=== PATIENT | male | born 1935 | race Caucasian/White ===

== ENCOUNTER 2016-06-14 15:06 | Inpatient (IN) | payer MEDICARE, MEDICAID ==
[~2016-06-14] VITALS: Ht 162.6 cm; Wt 67.7 kg
[~2016-06-14 15:06] MED LIST: ACET325T33 G-TUBE; ACET325T45 G-TUBE; ALBU2.5V3 NEB; ASCO500S2 GTB; ATOR10TA65 G-TUBE; BISA10SU58 PR; CHLO118L3 TOP; CRAN3875 GTB; FAMO20TA18 GTB; FERR220S2 GTB; HYDR-906 GTB; INSU300I SQ; KEP100S G-TUBE; LACT1CAP4 G-TUBE; LANT3I SC; MAGN400O4 G-TUBE; METO-429 GTB; MULT9LIQ4 G-TUBE; NA P118E PR; TYL500 G-TUBE; UDCOL GTB
--- NOTE | 2016-06-14 15:21 | ERA ---
ER Documentation Chief Complaint Date/Time DATE: 06/14/16 TIME: 15:13 Chief Complaint HPI History is limited due to the patient's clinical condition and cognitive impairment and is obtained from transferring paramedics and review of [facility] facility records. 80-year-old male with a history of diabetes mellitus type 2, hypertension, hyperlipidemia, chronic respiratory failure status post tracheostomy, traumatic brain injury and subdural hematoma status post craniotomy, seizure disorder, GERD, anemia, sepsis, encephalopathy, chronic kidney disease, status post G- tube placement sent to the ED from [facility] for evaluation of anemia, H/H 7.4/23.8 on yesterday's labs. No documented vomiting , diarrhea, shortness of breath or cough. No change in mental status. No fevers. ROS All systems reviewed and are negative except as per history of present illness. Medications Home Meds Reported Medications Amino Acids/Protein Hydrolys (PRO-STAT LIQUID) 30 Ml Liquid.pkt, 30 ML GTB DAILY 06/14/16 Insulin Aspart* (Novolog Insulin Pen*) 100 Unit/Ml Soln, 0 SC .SLIDING SCALE AC , EA 0-150=0, 151-200=1UNITS, 201-250=2UNITS, 251-300=3UNITS, 301-350=4UNITS, 351-400=5UNITS, >400=6UNITS, ABOVE 400 OR BELOW 60 NOTIFY 06/14/16 Insulin Detemir (Levemir Flextouch) 100 Unit/1 Ml Insuln.pen, 20 UNIT SQ QHS 06/14/16 Zinc Sulfate* (Zinc Sulfate*) 220 Mg Tablet, 220 MG GTB DAILY, TAB 06/14/16 Enoxaparin Sodium* (Enoxaparin Sodium*) 40 Mg/0.4 Ml Syringe, 40 MG SC Q24H, SYR 06/14/16 Dexlansoprazole (Dexilant) 30 Mg Cap., 30 MG GTB DAILY, #30 CAP 06/14/16 Meloxicam* (Mobic*) 15 Mg Tablet, 15 MG DAILY, #30 TAB 06/14/16 Losartan Potassium* (Losartan Potassium*) 50 Mg Tablet, 50 MG GTB DAILY, TAB HOLD FOR SBP<110. HR<60 06/14/16 Aspirin* (Aspirin* EC) 81 Mg Tablet., 81 MG GTB DAILY, TAB 06/14/16 Hydrocodone/Acetaminophen ([place] 5-325 Tablet) 1 Each Tablet, 1 EACH GTB Q4H, TAB FOR PAIN 7-01/2903/10/16 Ascorbic Acid* (Vitamin C* Liq) 500 Mg/5 Ml Syrup, 500 MG GTB DAILY, ML 09/03/15 Acetaminophen* (Tylenol*) 500 Mg Tab, 1000 MG G-TUBE Q4H Y for MODERATE PAIN LEVEL 4-6, TAB 09/03/15 Acetaminophen* (Tylenol*) 325 Mg Tablet, 650 MG G-TUBE Q4H Y for MILD PAIN LEVEL 1-3, TAB FOR FEVER 100 AND ABOVE,TRACH TUBE CHANGE. 09/03/15 Multivit &Minerals/Ferrous Fum (MULTIVITAMIN LIQUID) 9 Mg/15 Ml Liquid, 5 ML G- TUBE DAILY 09/03/15 Ferrous Sulfate (Ferrous Sulfate) 220 Mg Solution, 330 MG GTB DAILY 09/03/15 Discontinued Reported Medications Insulin Glargine,Hum.rec.anlog (Eriberto Lemus) 300 Unit/1 Ml Insuln.pen, 10 UNIT SQ DAILY 03/10/16 Cran/Vitc/Mannose/Inulin/Brom (Uti-Stat Liquid) 3,875 Mg/30 Ml Liquid, 3875 MG GTB BID 03/10/16 Insulin Glargine* (Lantus*) 100 Unit/Ml Soln, 10 UNIT SC DAILY, #1 VIAL 03/10/16 Metoprolol Tartrate* (Lopressor*) 50 Mg Tab, 50 MG GTB BID, #60 TAB HOLD FOR SBP BELOW 110, HR BELOW 60 12/29/15 Famotidine* (Famotidine*) 20 Mg Tablet, 20 MG GTB DAILY, #30 TAB 12/29/15 Lactobacillus Acidophilus/Pect (Acidophilus-Pectin Capsule) 1 Cap Capsule, 1 CAP G-TUBE BID, CAP 09/03/15 Acetaminophen* (Tylenol*) 325 Mg Tablet, 650 MG G-TUBE BID for PAIN AND OR ELEVATED TEMP, TAB 09/03/15 Acetaminophen* (Acetaminophen*) 325 Mg Tablet, 650 MG G-TUBE Q4H Y for FEVER GREATER THAN 100.6, TAB 09/03/15 Magnesium Hydroxide* (Milk Of Magnesia*) 400 Mg/5 Ml Oral.susp, 30 ML G-TUBE DAILY Y for CONSTIPATION, ML 09/03/15 Levetiracetam* (Keppra* (Ped)) 100 Mg/Ml Liq, 500 MG G-TUBE BID, BOTTLE 09/03/15 Na Phos,M-B/Na Phos,Di-Ba* (Fleet* Enema) 118 Ml Enema, 118 ML TX Q48H Y for CONSTIPATION, ENEMA 09/03/15 Bisacodyl* (Dulcolax*) 10 Mg/Supp.rect Supp.rect, 10 MG TX Q24H Y for CONSTIPATION, SUPP.RECT 09/03/15 Docusate Sodium* (Colace* Liq) 50 Mg/5 Ml Liquid, 100 MG GTB BID, EA 09/03/15 Chlorhexidine Gluconate* (Chlorhexidine Gluconate*) 118 Ml Liquid, 15 ML TOP Q12 , ML 09/03/15 Albuterol Sulfate* (Albuterol Sulfate* Neb) 0.083%-3 Ml Neb, 2.5 MG NEB Q6, VIAL 09/03/15 Albuterol Sulfate* (Albuterol Sulfate* Neb) 0.083%-3 Ml Neb, 2.5 MG NEB Q3H Y for WHEEZING AND SOB, VIAL 09/03/15 Atorvastatin Calcium (Atorvastatin Calcium) 10 Mg Tablet, 10 MG G-TUBE QHS, TAB 09/03/15 Allergies Allergies: Coded Allergies: No Known Allergy (Unverified , 06/14/16) PMhx/Soc POLST: Section a DNR. Section B full treatment but selective treatment is also checked. Section C long-term artificial nutrition including feeding tubes. The legally recognized decision maker is Gordon Carroll. [phone]. Reviewed in chart. As per HPI. History of Surgery: Yes (craniotomy 05/2015, tracheostomy, peg) Hx Neurological Disorder: Yes (SDH, seizures) Hx Respiratory Disorders: Yes (Respiratory failure, vent dependent, hcap pneumonia) Hx Cardiac Disorders: Yes (HTN, HL) Hx Psychiatric Problems: No Hx Miscellaneous Medical Probl: Yes (DM) Hx Alcohol Use: No Hx Substance Use: No Hx Tobacco Use: No (unresponsive) FmHx Unknown. Not relevant to presenting complaint. Physical Exam Vitals Vital Signs Date Time Temp Pulse Resp B/P Pulse Ox O2 Delivery O2 Flow Rate FiO2 1/24/17 15:31 2 06/14/16 15:17 98.1 79 18 113/76 97 Physical Exam Const: Alert, nonverbal. Head: Status post craniotomy Eyes: Normal Conjunctiva ENT: Normal External Ears, Nose and Mouth. Mucous membranes dry Neck: Full range of motion. No meningismus. Nontender. Tracheostomy site clean without erythema, induration or drainage Resp: Diminished with crackles at the bases. No rhonchi or wheezes. Cardio: Regular rate and rhythm, no murmurs Abd: Soft, non tender, non distended. Normal bowel sounds. G-tube site no erythema, induration or drainage. Rectal: Brown stool, heme-negative. Skin: Multiple decubiti including sacrum, heels, elbows and knees, in various stages Back: No midline or flank tenderness Ext: No cyanosis, or edema Neur: Eyes open but nonverbal and does not follow commands. Result Diagram: 06/14/16 1530 06/14/16 1530 Results 24 hrs Laboratory Tests Test 06/14/16 15:30 06/14/16 16:43 Activated Partial Thromboplast Time 41.8Sec Alanine Aminotransferase (ALT/SGPT) 26IU/L Albumin 3.0g/dl Albumin/Globulin Ratio 0.81 Alkaline Phosphatase 216IU/L Anion Gap 13 Aspartate Amino Transf (AST/SGOT) 27IU/L Basophils # 0.010^3/ul Basophils % 0.3% Blood Morphology Comment Blood Urea Nitrogen 18mg/dl Calcium Level 8.5mg/dl Carbon Dioxide Level 27mmol/L Chloride Level 96mmol/L Creatinine 0.44mg/dl Direct Bilirubin 0.00mg/dl Eosinophils # 0.310^3/ul Eosinophils % 2.6% Globulin 3.70g/dl Glucose Level 120mg/dl Hematocrit 24.3% Hemoglobin 8.1g/dl INR International Normalized Ratio 0.93 Indirect Bilirubin 0.0mg/dl Lymphocytes # 2.010^3/ul Lymphocytes % 18.9% Mean Corpuscular Hemoglobin 32.5pg Mean Corpuscular Hemoglobin Concent 33.3g/dl Mean Corpuscular Volume 97.7fl Mean Platelet Volume 7.2fl Monocytes # 0.410^3/ul Monocytes % 3.6% Neutrophils # 7.810^3/ul Neutrophils % 74.6% Nucleated Red Blood Cells # 0.010^3/ul Nucleated Red Blood Cells % 0.0/100WBC Platelet Count 40291^3/UL Potassium Level 3.9mmol/L Prothrombin Time 12.5Sec Prothrombin Time Ratio 1.0 Red Blood Count 2.4910^6/ul Red Cell Distribution Width 17.8% Sodium Level 132mmol/L Total Bilirubin 0.0mg/dl Total Protein 6.7g/dl White Blood Count 10.410^3/ul Stool Occult Blood NEGATIVE Current Medications Medications (Trade) Dose Ordered Sig/Pablo Route PRN Reason Start Time Stop Time Status Last Admin Dose Admin Pantoprazole (Protonix Iv) 40 mg ONCE STAT IV 06/14/16 15:24 06/14/16 15:28 DC 06/14/16 15:33 RHYTHM STRIP INTERPRETATION: Time: 15: 50. Sinus rhythm. Ventricular rate 92. No ectopy. Indication: Respiratory failure, anemia. EKG: Time: 15:52. Sinus rhythm. Ventricular rate 92, normal TX and QRS intervals. No acute ST segment elevation or depression. No axis deviation or ectopy. EP Impression: Normal EKG IMAGING: PROCEDURE: XR Chest. CLINICAL INDICATION: There is for failure. TECHNIQUE: A single AP portable chest COMPARISON: 04/27/2016 FINDINGS: The cardiac silhouette is at the upper limits of normal in size. There is marked tortuosity of thoracic aorta with atherosclerotic calcification. Tracheostomy tube noted in place. . Mild vascular congestion. Small left pleural effusion. No focal consolidation. No pneumothorax. Chronic bilateral posterior rib fractures.. IMPRESSION: Mild vascular congestion with small pleural effusion. Little interval change compared to previous study.. RPTAT:AAJJ Physician Jose Juan Date Time Electronically viewed and signed by Physician Jose Juan on 06/14/2016 15:59 MULUGETA/ Procedures/MDM DOCUMENTS REVIEWED: ED nurse, prior ED, prior records, [facility] facility records MEDICAL DECISION MAKIN-year-old male with a history of diabetes mellitus type 2, hypertension, chronic respiratory failure status post tracheostomy, traumatic brain injury and subdural hematoma status post craniotomy, seizure disorder, GERD, anemia, sepsis, encephalopathy, chronic kidney disease, status post G-tube placement sent to the ED from [facility] for evaluation of anemia, H/H 7.4/23.8 on yesterday's labs. Today H/H 8.1 24.3 as compared to most recent inpatient labs 04/29/2016 H/H 9.6/28.5. No evidence of acute low blood loss. Stool is brown and heme negative. Patient with mild worsening anemia of chronic disease will be admitted to med/sugars observation for transfusion, further evaluation and management.. Counseled daughter regarding diagnosis, diagnostic results and plan for admission. CALLS/CONSULTS: Time 17:10, Dr. Bagnura, Recommends admission to med/surg and transfusion of 2 units of PRBC's. PATIENT CARE TRANSITIONED: Time: 17: 58, Dr. Bangura. Departure Diagnosis: Primary Impression: Anemia Qualified Code: D64.9 - Anemia, unspecified type Additional Impressions: History of traumatic brain injury History of subdural hematoma Diabetes mellitus type 2 in nonobese Hypertension Qualified Code: I10 - Essential hypertension History of respiratory failure Tracheostomy dependent Condition: Serious ALEXA CUELLAR MD Jun 14, 2016 15:21
[2016-06-14] MEDS ORDERED: PANTOPRAZOLE 40 MG INJ IV STA (15:24)
[2016-06-14 15:49] LABS: BASOPHILS % 0.3 % (0.0-2.0); EOSINOPHILS # 0.3 10^3/ul (0.0-0.5); EOSINOPHILS % 2.6 % (0.0-7.0); HEMATOCRIT 24.3 % (42.0-52.0); HEMOGLOBIN 8.1 g/dl (14.0-18.0); LYMPHOCYTES % 18.9 % (15.0-51.0); MEAN CORPUSCULAR HEMOGLOBIN 32.5 pg (29.0-33.0); MEAN CORPUSCULAR HGB CONC 33.3 g/dl (32.0-37.0); MEAN CORPUSCULAR VOLUME 97.7 fl (82.0-101.0); MEAN PLATELET VOLUME 7.2 fl (7.4-10.4); MONOCYTE # 0.4 10^3/ul (0.3-0.9); MONOCYTES % 3.6 % (0.0-11.0); NEUTROPHIL # 7.8 10^3/ul (1.6-7.5); NEUTROPHILS % 74.6 % (39.0-77.0); PLATELET COUNT 433 10^3/UL (140-440); RED BLOOD COUNT 2.49 10^6/ul (4.70-6.10); RED CELL DISTRIBUTION WIDTH 17.8 % (11.5-14.5); UNCORRECTED WBC 10.4 10^3/ul (4.8-10.8); WHITE BLOOD COUNT 10.4 10^3/ul (4.8-10.8)
[2016-06-14 15:58] LABS: INR 0.93; PROTIME 12.5 Sec (12.2-14.2)
[2016-06-14 15:59] LABS: PARTIAL THROMBOPLASTIN TIME 41.8 Sec (25.0-35.0)
--- NOTE | 2016-06-14 15:59 | RADRPT ---
PROCEDURE: XR Chest. CLINICAL INDICATION: There is for failure. TECHNIQUE: A single AP portable chest COMPARISON: 04/27/2016 FINDINGS: The cardiac silhouette is at the upper limits of normal in size. There is marked tortuosity of thor acic aorta with atherosclerotic calcification. Tracheostomy tube noted in place. . Mild vascular c ongestion. Small left pleural effusion. No focal consolidation. No pneumothorax. Chronic bilater al posterior rib fractures.. IMPRESSION: Mild vascular congestion with small pleural effusion. Little interval change compared to previous s tudy.. RPTAT:AAJJ Chika Ramos Physician Date Time Electronically viewed and signed by Physician Jose Juan on 06/14/2016 15:59 MULUGETA/
[2016-06-14 16:01] LABS: CONDITION 1; LH ANALYZER COMMENTS 1; POTASSIUM 3.9 mmol/L (3.5-5.1)
[2016-06-14 16:03] LABS: CREATININE 0.44 mg/dl (0.61-1.24)
[2016-06-14 16:04] LABS: ALBUMIN/GLOBULIN RATIO 0.81; CALCIUM 8.5 mg/dl (8.4-10.2); TOTAL PROTEIN 6.7 g/dl (6.1-8.1)
[2016-06-14] MEDS ORDERED: ASPI-664 GTB (16:55)
[2016-06-14] MEDS ORDERED: LOSA50TA6 GTB (16:56)
[2016-06-14] MEDS ORDERED: MELO-110 (16:56)
[2016-06-14] MEDS ORDERED: DEXL30CA2 GTB (16:58)
[2016-06-14] MEDS ORDERED: LOV40I SC (16:59)
[2016-06-14] MEDS ORDERED: ZINC220T GTB (17:00)
[2016-06-14] MEDS ORDERED: INSU100I27 SQ (17:12)
[2016-06-14] MEDS ORDERED: NOVO3I SC (17:16)
[2016-06-14] MEDS ORDERED: AMIN30LI GTB (17:22)
[2016-06-14] MEDS ORDERED: ACETAMINOPHEN 325 MG TAB PO PRN (18:00)
[2016-06-14] MEDS ORDERED: ONDANSETRON 4 MG INJ IV PRN (18:00)
[2016-06-14 19:09] VITALS: TEMP 98.1
[2016-06-14 20:28] VITALS: BP 124/61; RESP 18
[2016-06-14] MEDS ORDERED: SOD CHLORIDE 0.9% 250 ML IV* ONE (21:53)
[2016-06-14] MEDS ORDERED: ACETAMINOPHEN 650MG/20.3ML CUP GTB PRN ×2 (22:00→22:30)
[2016-06-14] MEDS ORDERED: HYDROCODONE/APAP (5/325) TAB GTB SCH (22:00)
[2016-06-14 23:00] VITALS: Ht 162.6 cm; Wt 67.7 kg
[2016-06-14] MEDS ORDERED: BISACODYL 10 MG SUPP PR PRN (23:30)
[2016-06-14] MEDS ORDERED: GLUCOSE GEL 15 GRAM TUBE BUCCAL PRN (23:30)
[2016-06-14] MEDS ORDERED: MAGNESIUM HYDROXIDE 30ML CUP GTB PRN (23:30)
[2016-06-14] MEDS ORDERED: DEXTROSE 50% 50 ML SYRINGE IV PRN ×2 (23:30)
[2016-06-14] MEDS ORDERED: GLUCAGON 1 MG INJ IM PRN (23:30)
[2016-06-14] MEDS ORDERED: GLUCOSE GEL 15 GRAM TUBE PO PRN ×2 (23:30)
[2016-06-14] MEDS: ALBUTEROL 0.5% (NEB) 2.5 MG/0.5 ML AMP HHN SCH (23:32)
--- NOTE | 2016-06-14 23:58 | HP ---
DATE OF ADMISSION: 06/14/2016 HISTORY OF PRESENT ILLNESS: History has been obtained from nursing staff at [facility] and after discussion with Dr. Sigifredo Arango, ER physician, and review of old medical records. The patient is an 80-year-old gentleman well known to me. The patient has history of fall back in May 2015 and the patient developed traumatic brain injury and underwent craniotomy for left hemispheric subdural hematoma. The patient also was noted to have left temporal lobe lesion. Since then, patient has been nonverbal. The patient is being fed through G-tube. The patient is total care . The patient was recently noted to have a hemoglobin of about 7. CBC done this morning also revealed hemoglobin of 7.4. The patient also looked pale and weak and is being admitted for further evaluation and management. The patient did not have any hematemesis or melena. No history of fever or chills. No reported vomiting. No recent diarrhea. No reported edema. The patient has multiple decubitus. Please see nursing skin assessment for more details. The patient was seen in the ER and was noted to have possible urinary tract infection in addition to anemia. The patient's hemoglobin back in April 2016 was 9.6. The patient is being admitted for further evaluation and management. REVIEW OF SYSTEMS: Limited due to the patient's nonverbal status. The patient did not have any seizure. No reported bleeding from any site. No acute skin rash. PAST MEDICAL HISTORY: As above. In addition, the patient recently had possible ischemic bowel and also acute kidney injury and also had severe sepsis in February 2016, polymicrobial. Negative 2D echo for vegetation at that time. PAST SURGICAL HISTORY: The patient is status post craniotomy for subdural hematoma, also tracheostomy and G-tube placement. SOCIAL HISTORY: History of smoking and alcohol abuse in the past. FAMILY HISTORY: Noncontributory for patient's condition. ALLERGIES: NONE. PHYSICAL EXAMINATION: GENERAL: The patient is lethargic, but arousable, however, nonverbal. afebrile , VItals signs stable HEENT: No eye discharge or redness. Extraocular movements could not be tested , as the patient is nonverbal. The conjunctivae and lids normal. No eye or ear discharge. Oropharynx grossly negative, although suboptimal exam. NECK: Tracheostomy in place, mild secretions. No mass. CHEST: Diminished air entry at bases. No use of accessory muscles. CARDIOVASCULAR: Regular rate and rhythm. S1, S2 normal. No murmur, gallop, or rub. ABDOMEN: Soft, nondistended, nontender. EXTREMITIES: Contracted with no leg edema. SKIN: Without acute rash. Multiple decubitus. Please see nursing assessment. NEURO : lethargic , nonverbal & contracted LYMPHATIC : no lymphadeopathy in neck & axilla. PSYCH : no anxiety or agitation. LABORATORY DATA: UA positive for UTI. CBC done in the ER revealed a hemoglobin of 8.1, [facility]. WBC 10.4, platelets 433. Chemistry: Sodium 132, potassium 2.9, BUN 18, creatinine 0.4. AST 27, ALT 26. Chest x-ray without infiltrate. IMPRESSION: 1. Anemia of chronic disease. Rule out gastrointestinal bleed. The patient will be transfused 2 units of PRBC and will do followup CBC. Will also do iron panel, ferritin, B12, and folic acid levels. 2. Possible urinary tract infection. The patient was started on cefepime, pending urine culture report. 3. 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 No acute issue. 4. Diabetes. Will continue Levemir and sliding scale insulin. 5. Multiple decubiti. Wound care nurse will be obtained. Will do wound care as per protocol for now. 6. Hypertension. Continue Cozaar. Further recommendations will depend on patient's hospital course. We will do followup labs in the morning. As far as multiple decubiti are concerned, patient will be seen by print support specialist. Dictated By: JAKE GONZALEZ/MARLON Conf#: [id number] DID#: [id number] MTDD
[2016-06-14] MEDS: CEFEPIME 1GM/50 ML (PMX) 50 ML IVPB SCH (23:59)
[2016-06-15] MEDS: INSULIN DETEMIR [LEVEMIR] 3ML CART SC SCH ×2 (00:08→21:47)
[2016-06-15] MEDS: INSULIN ASPART [NOVOLOG] 3 ML PEN SC SCH ×4 (00:22→18:36)
[2016-06-15] MEDS ORDERED: ACCUCHECK XX SCH (02:00)
[2016-06-15] MEDS ORDERED: HYDROCODONE/APAP (5/325) TAB GTB PRN (02:00)
[2016-06-15] MEDS: ALBUTEROL 0.5% (NEB) 2.5 MG/0.5 ML AMP HHN SCH ×4 (04:18→21:03)
[2016-06-15] MEDS: LANSOPRAZOLE 30 MG CAP GTB SCH (06:02)
[2016-06-15 06:29] LABS: BASOPHILS % 0.3 % (0.0-2.0); EOSINOPHILS # 0.2 10^3/ul (0.0-0.5); EOSINOPHILS % 2.6 % (0.0-7.0); HEMATOCRIT 24.5 % (42.0-52.0); HEMOGLOBIN 8.3 g/dl (14.0-18.0); LYMPHOCYTES % 20.9 % (15.0-51.0); MEAN CORPUSCULAR HEMOGLOBIN 32.7 pg (29.0-33.0); MEAN CORPUSCULAR HGB CONC 33.8 g/dl (32.0-37.0); MEAN CORPUSCULAR VOLUME 96.9 fl (82.0-101.0); MEAN PLATELET VOLUME 7.5 fl (7.4-10.4); MONOCYTE # 0.3 10^3/ul (0.3-0.9); MONOCYTES % 3.5 % (0.0-11.0); NEUTROPHILS % 72.7 % (39.0-77.0); PLATELET COUNT 444 10^3/UL (140-440); RED BLOOD COUNT 2.53 10^6/ul (4.70-6.10); RED CELL DISTRIBUTION WIDTH 17.5 % (11.5-14.5); UNCORRECTED WBC 9.6 10^3/ul (4.8-10.8); WHITE BLOOD COUNT 9.6 10^3/ul (4.8-10.8)
[2016-06-15 06:30] LABS: CONDITION 1; LH ANALYZER COMMENTS 1; SUSPECT 1
[2016-06-15 06:39] LABS: IRON 40 ug/dl (35-150)
[2016-06-15 06:41] LABS: CHLORIDE 98 mmol/L (97-110); SODIUM 135 mmol/L (135-144)
[2016-06-15 06:42] LABS: POTASSIUM 3.5 mmol/L (3.5-5.1)
[2016-06-15 06:44] LABS: CREATININE 0.42 mg/dl (0.61-1.24)
[2016-06-15 06:45] LABS: ANION GAP 13 (8-16); BLOOD UREA NITROGEN 13 mg/dl (7-20); CALCIUM 8.9 mg/dl (8.4-10.2); CARBON DIOXIDE 28 mmol/L (21-31); GLUCOSE 103 mg/dl (70-220)
[2016-06-15 06:48] LABS: TOTAL IRON BINDING CAPACITY 272 ug/dl (241-421)
[2016-06-15 07:23] VITALS: BP 123/67; RESP 16
[2016-06-15 07:54] LABS: FOLATE > 20.0 ng/ml (2.8-20.0)
[2016-06-15] MEDS ORDERED: INSULIN ASPART [NOVOLOG] 3 ML PEN SC SCH (08:15)
[2016-06-15] MEDS: MULTIVITAMINS 5 ML CUP GTB SCH (09:00)
[2016-06-15] MEDS: ZINC SULFATE 220 MG CAP GTB SCH (09:00)
[2016-06-15] MEDS: FERROUS SULFATE 60 MG/ML 5ML CUP GTB SCH (09:00)
[2016-06-15] MEDS: ASCORBIC ACID 500 MG TAB GTB SCH (09:00)
[2016-06-15] MEDS: LOSARTAN 50 MG TAB GTB SCH (09:00)
[2016-06-15] MEDS ORDERED: NON-FORMULARY/PATIENT OWN MED (Amino Acids/Protein Hydrolys (Pro-Stat Liquid) 30 ML) GTB SCH (09:00)
[2016-06-15] MEDS: MELOXICAM 15 MG TAB GTB SCH (09:01)
[2016-06-15] MEDS ORDERED: PEG/ELECTROLYTES 4L BTL PO ONE (12:00)
--- NOTE | 2016-06-15 12:03 | CONS ---
DATE OF ADMISSION: 06/14/2016 DATE OF CONSULTATION: Dear Dr. Bangura: Thank you for asking me to see Mr. Ross in GI consultation. HISTORY OF PRESENT ILLNESS: The patient, as you know, is an 80-year-old gentleman transfer red to [facility] from [facility] because of severe a nemia, hemoglobin is very significantly low with 7.4. He has a tracheostomy. He is on a T-tube. H e is unable to give significant history. Most of the history is obtained from the chart and the jo sing. The patient has no history of vomiting blood or passing blood from the rectum. He has other medical problems including anemia of chronic disease, possible urinary tract infection, chronic ence phalopathy, diabetes, decubitus ulcers, hypertension. MEDICATIONS: He has been on medications prior to the admission, which includes: 1. Lovenox. 2. Ferrous sulfate. 3. Losartan. 4. Tylenol. 5. Aspirin. 6. [place]. 7. Mobic. 8. Zinc sulfate. 9. Dexilant. 10. NovoLog. 11. Levemir. 12. Vitamin C. 13. Multivitamins ____. PAST MEDICAL HISTORY: History of tracheostomy because of respiratory failure. FAMILY HISTORY: The patient had a family history of ischemic bowel disease in the past with renal fa ilure. PAST SURGICAL HISTORY: Patient also has a history of craniotomy for subdural hematoma, tracheostomy and also PEG placement. SOCIAL HISTORY: Positive for smoking and alcohol in the past. PHYSICAL EXAMINATION: GENERAL: The patient is an 80-year-old male who at this time is alert but is nonverbal. VITAL SIGNS: Temperature 98.3, blood pressure 123/67. CARDIOVASCULAR: Normal heart sounds. RESPIRATORY: Normal breath sounds. ABDOMEN: Showed unremarkable findings. He has a G-tube in place. He has a tracheostomy. LABORATORY WORKUP: The hemoglobin is 8.1 yesterday, hematocrit 24.3, WBC count 10,400, platelet cou nt 433,000, potassium 3.9, AST 27, ALT 26, alkaline phosphatase 216, BUN 18, creatinine 0.4. Chest x-ray shows mild vascular congestion, small pleural effusion. CLINICAL IMPRESSION: 1. The patient presenting with history of severe anemia, rule out gastrointestinal bleeding either due to peptic ulcer disease, gastrostomy site ulcer disease. 2. Rule out AVM of the GI tract, rule out malignancy of the gastrointestinal tract. 3. History of respiratory failure, status post tracheostomy. 4. History of subdural hematoma requiring craniotomy in the past. PLAN: At this time, recommend upper endoscopy as well as lower endoscopy. Once again, doctor, thank you for this consultation. Dictated By: IGGY ROSALES MD NC/NTS Conf#: [id number] DID#: [id number] CC: IGGY ROSALES MD; JAKE BANGURA MD;*EndCC*
--- NOTE | 2016-06-15 18:06 | PN ---
Date/Time of Note Date/Time of Note DATE: 06/15/16 TIME: 18:01 Assessment/Plan VTE Prophylaxis VTE Prophylaxis Intervention: SCD's Lines/Catheters IV Catheter Type (from [facility]): [place] Urinary Cath still in place: Yes Reason Cath still needed: urinary retention Assessment/Plan Assessment/Plan 1. Anemia of chronic disease. Rule out gastrointestinal bleed. Status post blood transfusion. Dr. Marshall is asked to see patient in gastroenterology consultation. 2. Possible urinary tract infection. The patient was started on cefepime, pending urine culture. 3. 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 No acute issue. 4. Diabetes. Continue Levemir and sliding scale insulin. 5. Multiple decubiti. Continue wound care according to wound care recommendation. 6. Hypertension. Continue Cozaar. Further recommendations will depend on patient's hospital course. Plan of care discussed with Dr. Bangura Subjective 24 Hr Interval Summary Free Text/Dictation Patient with congestion, requires frequent suctioning, no fever, nausea vomiting per RN. Exam/Review of Systems Vital Signs Vitals Vital Signs Date Time Temp Pulse Resp B/P Pulse Ox O2 Delivery O2 Flow Rate FiO2 06/15/16 17:20 5.0 28 06/15/16 13:27 90 18 98 Aerosol 06/15/16 07:23 98.3 123/67 Intake and Output 06/14/16 06/14/16 06/15/16 15:00 23:00 07:00 Intake Total 50 ml Output Total 500 ml Balance -450 ml Exam GENERAL: The patient is lethargic, but arousable, however, nonverbal at baseline. HEENT: Atraumatic normocephalic, PERRLA NECK: Tracheostomy in place, mild secretions. No mass. CHEST: Diminished air entry at bases. No use of accessory muscles. CARDIOVASCULAR: Regular rate and rhythm. S1, S2 normal. No murmur, gallop, or rub. ABDOMEN: Soft, nondistended, nontender. G-tube was intact stoma EXTREMITIES: Contracted with no leg edema. SKIN: Without acute rash. Multiple decubitus. NEURO : lethargic , nonverbal & contracted Results Result Diagram: 06/15/16 0540 06/15/16 0540 Results 24 hrs Laboratory Tests Test 06/15/16 00:00 06/15/16 05:40 06/15/16 06:03 06/15/16 11:13 Bedside Glucose 206 121 192 Anion Gap 13 Basophils # 0.0 Basophils % 0.3 Blood Morphology Comment Blood Urea Nitrogen 13 Calcium Level 8.9 Carbon Dioxide Level 28 Chloride Level 98 Creatinine 0.42 L Eosinophils # 0.2 Eosinophils % 2.6 Ferritin 139.0 Folate > 20.0 H Glucose Level 103 Hematocrit 24.5 L Hemoglobin 8.3 L Iron Level 40 Lymphocytes # 2.0 Lymphocytes % 20.9 Mean Corpuscular Hemoglobin 32.7 Mean Corpuscular Hemoglobin Concent 33.8 Mean Corpuscular Volume 96.9 Mean Platelet Volume 7.5 Monocytes # 0.3 Monocytes % 3.5 Neutrophils # 7.0 Neutrophils % 72.7 Nucleated Red Blood Cells # 0.0 Nucleated Red Blood Cells % 0.0 Percent Iron Saturation 15 L Platelet Count 444 H Potassium Level 3.5 Red Blood Count 2.53 L Red Cell Distribution Width 17.5 H Sodium Level 135 Total Iron Binding Capacity 272 Vitamin B12 Level 625 White Blood Count 9.6 Test 06/15/16 12:20 06/15/16 17:25 Stool Occult Blood NEGATIVE Bedside Glucose 145 Medications Medications Current Medications Cefepime HCl (Maxipime 1gm/50 ml (Pmx)) 50 ml @ 100 mls/hr Q24H IVPB Last administered on 06/14/16 23:59; Admin Dose 100 MLS/HR; Start 06/14/16 at 22:30 Acetaminophen (Tylenol Liquid) 650 mg Q4H PRN GTB MILD PAIN LEVEL 1-3; Start at 22:30 Acetaminophen (Tylenol Liquid) 1,000 mg Q4H PRN GTB MODERATE PAIN LEVEL 4-6; Start 06/14/16 at 22:00 Ascorbic Acid (Vitamin C) 500 mg DAILY GTB Last administered on 06/15/16 09:00 ; Admin Dose 500 MG; Start 06/15/16 at 09:00 Insulin Detemir (Levemir) 20 unit QHS SC Last administered on 06/15/16 00:08; Admin Dose 20 UNIT; Start 06/14/16 at 23:00 Losartan Potassium (Cozaar) 50 mg DAILY GTB Last administered on 06/15/16 09: 00; Admin Dose 50 MG; Start 06/15/16 at 09:00 Meloxicam (Mobic) 15 mg DAILY GTB Last administered on 06/15/16 09:01; Admin Dose 15 MG; Start 06/15/16 at 09:00 Zinc Sulfate (Zinc Sulfate) 220 mg DAILY GTB Last administered on 06/15/16 09: 00; Admin Dose 220 MG; Start 06/15/16 at 09:00 Lansoprazole (Prevacid) 30 mg DAILY@06 GTB Last administered on 06/15/16 06:02 ; Admin Dose 30 MG; Start 06/15/16 at 06:00 Ferrous Sulfate (Feosol Liquid Cup) 330 mg DAILY GTB Last administered on 09:00; Admin Dose 330 MG; Start 06/15/16 at 09:00 Multivitamins (Thera-Plus) 5 ml DAILY GTB Last administered on 06/15/16 09:00 ; Admin Dose 5 ML; Start 06/15/16 at 09:00 Acetaminophen/ Hydrocodone Bitart ([place] (5/325)) 1 tab Q4H PRN GTB pain; Start 06/15/16 at 02:00 Insulin Aspart (Novolog Insulin Pen) NOVOLOG *MILD* ALGORI... Q6 SC Last administered on 06/15/16 11:21; Admin Dose 2 UNIT; Start 06/15/16 at 00:00 Miscellaneous Information 1 ea NOTE XX ; Start 06/14/16 at 23:30 Glucose (Glutose) 15 gm Q15M PRN PO DECREASED GLUCOSE; Start 06/14/16 at 23:30 Glucose (Glutose) 22.5 gm Q15M PRN PO DECREASED GLUCOSE; Start 06/14/16 at 23: 30 Dextrose (D50w Syringe) 25 ml Q15M PRN IV DECREASED GLUCOSE; Start 06/14/16 at 23:30 Dextrose (D50w Syringe) 50 ml Q15M PRN IV DECREASED GLUCOSE; Start 06/14/16 at 23:30 Glucagon (Glucagen) 1 mg Q15M PRN IM DECREASED GLUCOSE; Start 06/14/16 at 23:30 Glucose (Glutose) 15 gm Q15M PRN BUCCAL DECREASED GLUCOSE; Start 06/14/16 at 23 :30 Bisacodyl (Dulcolax Supp) 10 mg DAILY PRN CO CONSTIPATION; Start 1/24/17 at 23 :30 Magnesium Hydroxide (Milk Of Mag) 30 ml DAILY PRN GTB CONSTIPATION; Start 06/14 at 23:30 Miscellaneous Information (Flu Vaccine Previously Dispensed) FLU VACCINE PREVIOU... NOTE PRN XX NOTE; Start 06/15/16 at 03:30 Influenza Virus Vaccine (Fluzone) 0.5 ml ONCE ONCE IM* ; Start 06/16/16 at 09:00 ; Stop 06/16/16 at 09:01 JASON GRIJALVA Jun 15, 2016 18:06
[2016-06-15 19:31] VITALS: BP 115/66; RESP 22
[2016-06-15] MEDS: CEFEPIME 1GM/50 ML (PMX) 50 ML IVPB SCH (22:38)
[2016-06-16] VITALS (12 sets, daily range): BP systolic 103–138; BP diastolic 59–84; PULSE 94–104; RESP 17–23
[2016-06-16] MEDS: ALBUTEROL 0.5% (NEB) 2.5 MG/0.5 ML AMP HHN SCH ×4 (01:27→21:12)
[2016-06-16] MEDS: INSULIN ASPART [NOVOLOG] 3 ML PEN SC SCH ×4 (06:00→18:00)
[2016-06-16] MEDS: LANSOPRAZOLE 30 MG CAP GTB SCH (06:00)
[2016-06-16 06:14] LABS: POTASSIUM 3.3 mmol/L (3.5-5.1)
[2016-06-16 06:16] LABS: CREATININE 0.39 mg/dl (0.61-1.24)
[2016-06-16 06:17] LABS: CALCIUM 8.3 mg/dl (8.4-10.2)
[2016-06-16] MEDS: SOD CHLORIDE 0.9% 1,000 ML IV SCH ×3 (06:30→23:13)
[2016-06-16] MEDS: ASCORBIC ACID 500 MG TAB GTB SCH (09:00)
[2016-06-16] MEDS: ZINC SULFATE 220 MG CAP GTB SCH (09:00)
[2016-06-16] MEDS ORDERED: INFLUENZA VIRUS VACCINE 0.5 ML (DISPENSING) IM* ONE (09:00)
[2016-06-16] MEDS: LOSARTAN 50 MG TAB GTB SCH (09:00)
[2016-06-16] MEDS: FERROUS SULFATE 60 MG/ML 5ML CUP GTB SCH (09:00)
[2016-06-16] MEDS: MULTIVITAMINS 5 ML CUP GTB SCH (09:00)
[2016-06-16] MEDS: MELOXICAM 15 MG TAB GTB SCH (09:00)
[2016-06-16] MEDS ORDERED: POTASSIUM CHLORIDE 30 MEQ in DEXTROSE 5% 250 ML IVPB ONE (11:30)
[2016-06-16 12:14] LABS: BASOPHILS % 0.4 % (0.0-2.0); EOSINOPHILS # 0.3 10^3/ul (0.0-0.5); EOSINOPHILS % 4.3 % (0.0-7.0); HEMATOCRIT 21.8 % (42.0-52.0); HEMOGLOBIN 7.4 g/dl (14.0-18.0); LYMPHOCYTES % 29.4 % (15.0-51.0); MEAN CORPUSCULAR HEMOGLOBIN 33.4 pg (29.0-33.0); MEAN CORPUSCULAR HGB CONC 33.8 g/dl (32.0-37.0); MEAN CORPUSCULAR VOLUME 98.8 fl (82.0-101.0); MEAN PLATELET VOLUME 7.7 fl (7.4-10.4); MONOCYTE # 0.3 10^3/ul (0.3-0.9); MONOCYTES % 4.2 % (0.0-11.0); NEUTROPHIL # 4.2 10^3/ul (1.6-7.5); NEUTROPHILS % 61.7 % (39.0-77.0); PLATELET COUNT 360 10^3/UL (140-440); UNCORRECTED WBC 6.9 10^3/ul (4.8-10.8); WHITE BLOOD COUNT 6.9 10^3/ul (4.8-10.8)
[2016-06-16 12:15] LABS: CONDITION 1; LH ANALYZER COMMENTS 1
--- NOTE | 2016-06-16 12:30 | PN ---
Date/Time of Note Date/Time of Note DATE: 06/16/16 TIME: 12:19 Assessment/Plan VTE Prophylaxis VTE Prophylaxis Intervention: other Lines/Catheters [facility] [place] Urinary Cath still in place: Yes Assessment/Plan Assessment/Plan 1. Anemia of chronic disease. Rule out gastrointestinal bleed. Status post blood transfusion. - per Dr. Marshall in gastroenterology consultation. 2. Possible urinary tract infection. The patient was started on cefepime, pending urine culture. 3. 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 No acute issue. 4. Diabetes. Continue Levemir and sliding scale insulin. 5. Multiple decubiti. Continue wound care according to wound care recommendation. 6. Hypertension. Continue Cozaar. Further recommendations will depend on patient's hospital course. Plan of care discussed with Dr. Bangura Exam/Review of Systems Vital Signs Vitals Vital Signs Date Time Temp Pulse Resp B/P Pulse Ox O2 Delivery O2 Flow Rate FiO2 06/16/16 08:02 89 22 94 Aerosol 5.0 28 T Tube 06/16/16 07:11 98.2 120/59 Intake and Output 06/15/16 06/15/16 06/16/16 15:00 23:00 07:00 Intake Total 50 ml Output Total 350 ml 400 ml Balance -350 ml -350 ml Exam Constitutional: alert, well developed Psych: no complaints Head: normocephalic Eyes: EOMI, PERRL, nl sclera ENMT: nl external ears & nose Respiratory: clear to auscultation Cardiovascular: nl pulses Gastrointestinal: non-tender, soft Musculoskeletal: nl extremities to inspection Extremities: normal pulses Neurological: nl speech Skin: other Lymph: nontender Results Result Diagram: 06/16/16 0505 06/16/16 0505 Results 24 hrs Laboratory Tests Test 06/15/16 12:20 06/15/16 17:25 06/15/16 21:44 06/15/16 23:56 Stool Occult Blood NEGATIVE Bedside Glucose 145 188 167 Test 06/16/16 05:05 06/16/16 06:10 06/16/16 10:15 06/16/16 11:50 Anion Gap 12 Basophils # 0.0 Basophils % 0.4 Blood Morphology Comment Blood Urea Nitrogen 13 Calcium Level 8.3 L Carbon Dioxide Level 28 Chloride Level 101 Creatinine 0.39 L Eosinophils # 0.3 Eosinophils % 4.3 Glucose Level 81 Hematocrit 21.8 L Hemoglobin 7.4 L Lymphocytes # 2.0 Lymphocytes % 29.4 Mean Corpuscular Hemoglobin 33.4 H Mean Corpuscular Hemoglobin Concent 33.8 Mean Corpuscular Volume 98.8 Mean Platelet Volume 7.7 Monocytes # 0.3 Monocytes % 4.2 Neutrophils # 4.2 Neutrophils % 61.7 Nucleated Red Blood Cells # 0.0 Nucleated Red Blood Cells % 0.0 Platelet Count 360 Potassium Level 3.3 L Red Blood Count 2.20 L Red Cell Distribution Width 18.0 H Sodium Level 138 White Blood Count 6.9 # Bedside Glucose 81 107 121 Medications Medications Current Medications Cefepime HCl (Maxipime 1gm/50 ml (Pmx)) 50 ml @ 100 mls/hr Q24H IVPB Last administered on 06/15/16 22:38; Admin Dose 100 MLS/HR; Start 06/14/16 at 22:30 Acetaminophen (Tylenol Liquid) 650 mg Q4H PRN GTB MILD PAIN LEVEL 1-3; Start at 22:30 Acetaminophen (Tylenol Liquid) 1,000 mg Q4H PRN GTB MODERATE PAIN LEVEL 4-6; Start 06/14/16 at 22:00 Ascorbic Acid (Vitamin C) 500 mg DAILY GTB Last administered on 06/15/16 09:00 ; Admin Dose 500 MG; Start 06/15/16 at 09:00 Insulin Detemir (Levemir) 20 unit QHS SC Last administered on 06/15/16 21:47; Admin Dose 20 UNIT; Start 06/14/16 at 23:00 Losartan Potassium (Cozaar) 50 mg DAILY GTB Last administered on 06/15/16 09: 00; Admin Dose 50 MG; Start 06/15/16 at 09:00 Meloxicam (Mobic) 15 mg DAILY GTB Last administered on 06/15/16 09:01; Admin Dose 15 MG; Start 06/15/16 at 09:00 Zinc Sulfate (Zinc Sulfate) 220 mg DAILY GTB Last administered on 06/15/16 09: 00; Admin Dose 220 MG; Start 06/15/16 at 09:00 Lansoprazole (Prevacid) 30 mg DAILY@06 GTB Last administered on 06/15/16 06:02 ; Admin Dose 30 MG; Start 06/15/16 at 06:00 Ferrous Sulfate (Feosol Liquid Cup) 330 mg DAILY GTB Last administered on 09:00; Admin Dose 330 MG; Start 06/15/16 at 09:00 Multivitamins (Thera-Plus) 5 ml DAILY GTB Last administered on 06/15/16 09:00 ; Admin Dose 5 ML; Start 06/15/16 at 09:00 Acetaminophen/ Hydrocodone Bitart ([place] (5/325)) 1 tab Q4H PRN GTB pain; Start 06/15/16 at 02:00 Insulin Aspart (Novolog Insulin Pen) NOVOLOG *MILD* ALGORI... Q6 SC Last administered on 06/16/16 00:00; Admin Dose 1 UNIT; Start 06/15/16 at 00:00 Miscellaneous Information 1 ea NOTE XX ; Start 06/14/16 at 23:30 Glucose (Glutose) 15 gm Q15M PRN PO DECREASED GLUCOSE; Start 06/14/16 at 23:30 Glucose (Glutose) 22.5 gm Q15M PRN PO DECREASED GLUCOSE; Start 06/14/16 at 23: 30 Dextrose (D50w Syringe) 25 ml Q15M PRN IV DECREASED GLUCOSE; Start 06/14/16 at 23:30 Dextrose (D50w Syringe) 50 ml Q15M PRN IV DECREASED GLUCOSE; Start 06/14/16 at 23:30 Glucagon (Glucagen) 1 mg Q15M PRN IM DECREASED GLUCOSE; Start 06/14/16 at 23:30 Glucose (Glutose) 15 gm Q15M PRN BUCCAL DECREASED GLUCOSE; Start 06/14/16 at 23 :30 Bisacodyl (Dulcolax Supp) 10 mg DAILY PRN [place] CONSTIPATION; Start 06/14/16 at 23 :30 Magnesium Hydroxide (Milk Of Mag) 30 ml DAILY PRN GTB CONSTIPATION; Start 06/14 at 23:30 Miscellaneous Information FLU VACCINE PREVIOU... NOTE PRN XX NOTE; Start at 03:30 Sodium Chloride 1,000 ml @ 100 mls/hr Q10H IV Last administered on 06/16/16 06:30; Admin Dose 100 MLS/HR; Start 06/16/16 at 06:30 Potassium Chloride/Dextrose (KCl/D5W) 265 ml @ 88.333 mls/ hr ONCE ONCE IVPB Last administered on 06/16/16t 10:58; Admin Dose 88.333 MLS/HR; Start 06/16/16 at 11:30; Stop 06/16/16 at 14:29 CHECO AGUILLON Jun 16, 2016 12:29
[2016-06-16] MEDS ORDERED: PROPOFOL 20 ML ONE (13:43)
--- NOTE | 2016-06-16 15:58 | GILP ---
DATE OF PROCEDURE: 06/16/2016 PROCEDURE PERFORMED: Colonoscopy. PREOPERATIVE DIAGNOSIS: Patient presenting with history of severe anemia and gastrointestinal bleed ing, rule out colorectal neoplasm. POSTOPERATIVE DIAGNOSES: Moderate degree of hemorrhoids. Rest of the colon appeared normal. DESCRIPTION OF PROCEDURE: After the informed written consent was obtained, the patient was asked to lie on the left lateral side. Intravenous anesthesia was given by anesthesiologist, Dr. Alvarenga. When the patient became somnolent, the Olympus video colonoscope was introduced into the rectum an d scope was advanced all the way to the cecum. The entire colon appeared normal with no mucosal abn ormality. Endoscope at this time was withdrawn. On the way out, minimal internal hemorrhoids, mode rate degree of external hemorrhoids were noted and the procedure was terminated. PLAN: Recommend further workup as indicated. Dictated By: IGGY ROSALES MD NC/NTS Conf#: [id number] DID#: [id number] CC: JAKE FIELDS MD;*EndCC*
--- NOTE | 2016-06-16 16:23 | GILP ---
DATE OF PROCEDURE: PROCEDURE: Esophagogastroduodenoscopy. PREOPERATIVE DIAGNOSIS: Patient presenting with history of severe anemia and gastrointestinal bleed ing, rule out peptic ulcer disease. POSTOPERATIVE DIAGNOSES: 1. Minimal reflux esophagitis, minimal antral gastritis. 2. Duodenum appeared normal. DESCRIPTION OF PROCEDURE: After informed written consent was obtained, the patient was asked to lie on the left lateral side. Intravenous anesthesia was given by anesthesiologist, Dr. Alvarenga. Whe n the patient became somnolent, the Olympus video upper endoscope was introduced into the oropharynx , then into the esophagus. Esophagus showed minimal erythema just above the GE junction with no ulc ers, no neoplasm. Scope at this time was advanced into the stomach. Stomach showed evidence of a g astrostomy in place. No ulcer noted at this site. Antrum showed minimal erythema. Fundus appeared normal. Duodenum was examined up to the end of the third portion, which appeared normal. Endoscop e at this time was withdrawn and no additional abnormalities detected and the procedure was terminat ed. PLAN: Recommend Pepcid 20 mg p.o. b.i.d. Dictated By: IGGY WALLACE/NTS Conf#: [id number] DID#: [id number] CC: JAKE FIELDS MD;*EndCC*
[2016-06-16 16:36] LABS: POTASSIUM 3.7 mmol/L (3.5-5.1)
[2016-06-16 16:38] LABS: CREATININE 0.38 mg/dl (0.61-1.24)
[2016-06-16 16:39] LABS: CALCIUM 8.5 mg/dl (8.4-10.2)
[2016-06-16] MEDS: FLUCONAZOLE 100 MG TAB PO SCH (18:04)
[2016-06-16] MEDS: INSULIN DETEMIR [LEVEMIR] 3ML CART SC SCH (20:45)
[2016-06-17] MEDS: INSULIN ASPART [NOVOLOG] 3 ML PEN SC SCH ×4 (00:05→18:00)
[2016-06-17] MEDS: SOD CHLORIDE 0.9% 1,000 ML IV SCH ×3 (02:02→22:30)
[2016-06-17] MEDS: ALBUTEROL 0.5% (NEB) 2.5 MG/0.5 ML AMP HHN SCH ×4 (02:09→20:41)
[2016-06-17] MEDS: LANSOPRAZOLE 30 MG CAP GTB SCH (05:24)
[2016-06-17 08:35] VITALS: BP 144/70; RESP 22
[2016-06-17] MEDS: MULTIVITAMINS 5 ML CUP GTB SCH (08:53)
[2016-06-17] MEDS: ASCORBIC ACID 500 MG TAB GTB SCH (08:53)
[2016-06-17] MEDS: FERROUS SULFATE 60 MG/ML 5ML CUP GTB SCH (08:53)
[2016-06-17] MEDS: MELOXICAM 15 MG TAB GTB SCH (08:53)
[2016-06-17] MEDS: FLUCONAZOLE 100 MG TAB PO SCH (08:53)
[2016-06-17] MEDS: ZINC SULFATE 220 MG CAP GTB SCH (08:53)
[2016-06-17] MEDS: LOSARTAN 50 MG TAB GTB SCH (08:54)
[2016-06-17] MEDS ORDERED: SOD CHLORIDE 0.9% 250 ML IV* ONE (14:39)
--- NOTE | 2016-06-17 16:35 | PN ---
Date/Time of Note Date/Time of Note DATE: 06/17/16 TIME: 16:27 Assessment/Plan VTE Prophylaxis VTE Prophylaxis Intervention: SCD's Lines/Catheters IV C[facility]ter Type (from [facility] Peripheral IV Central line still needed: Yes Urinary Cath still in place: Yes Reason Cath still needed: urinary retention Assessment/Plan Chief Complaint/Hosp Course Assessment/Plan 1. Anemia of chronic disease. Rule out gastrointestinal bleed. Status post blood transfusion. Dr. Marshall is asked to see patient in gastroenterology consultation. 2. MRD Pseudomonas urinary tract infection. Dr Pawel garland pt in ID consult. 3. 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 No acute issue. 4. Diabetes. Continue Levemir and sliding scale insulin. 5. Multiple decubiti. Continue wound care according to wound care recommendation. 6. Hypertension. Continue Cozaar. Further recommendations will depend on patient's hospital course. Plan of care discussed with Dr. Bangura Problems: Subjective 24 Hr Interval Summary Free Text/Dictation Pt is s/p EGD and colonoscopy, no fever, pending blood transfusion. Exam/Review of Systems Vital Signs Vitals Vital Signs Date Time Temp Pulse Resp B/P Pulse Ox O2 Delivery O2 Flow Rate FiO2 06/17/16 14:27 94 20 96 Aerosol 5.0 28 T Tube 06/17/16 08:35 98.2 144/70 Intake and Output 06/16/16 06/16/16 06/17/16 15:00 23:00 07:00 Intake Total 1095 ml 1100 ml Output Total 550 ml 1000 ml Balance 545 ml 100 ml Exam GENERAL: The patient is lethargic, but arousable, however, nonverbal at baseline. HEENT: Atraumatic normocephalic, PERRLA NECK: Tracheostomy in place, mild secretions. No mass. CHEST: Diminished air entry at bases. No use of accessory muscles. CARDIOVASCULAR: Regular rate and rhythm. S1, S2 normal. No murmur, gallop, or rub. ABDOMEN: Soft, nondistended, nontender. G-tube was intact stoma EXTREMITIES: Contracted with no leg edema. SKIN: Without acute rash. Multiple decubitus. NEURO : lethargic , nonverbal & contracted Results Result Diagram: 06/16/16 0505 06/16/16 1615 Results 24 hrs Laboratory Tests Test 06/16/16 17:08 1/26/17 20:41 06/17/16 00:01 06/17/16 05:21 Bedside Glucose 157 157 180 152 Test 06/17/16 12:46 Bedside Glucose 169 Medications Medications Current Medications Acetaminophen (Tylenol Liquid) 650 mg Q4H PRN GTB MILD PAIN LEVEL 1-3; Start at 22:30 Acetaminophen (Tylenol Liquid) 1,000 mg Q4H PRN GTB MODERATE PAIN LEVEL 4-6; Start 06/14/16 at 22:00 Ascorbic Acid (Vitamin C) 500 mg DAILY GTB Last administered on 06/17/16 08:53 ; Admin Dose 500 MG; Start 06/15/16 at 09:00 Insulin Detemir (Levemir) 20 unit QHS SC Last administered on 06/16/16 20:45; Admin Dose 20 UNIT; Start 06/14/16 at 23:00 Losartan Potassium (Cozaar) 50 mg DAILY GTB Last administered on 06/17/16 08: 54; Admin Dose 50 MG; Start 06/15/16 at 09:00 Meloxicam (Mobic) 15 mg DAILY GTB Last administered on 06/17/16 08:53; Admin Dose 15 MG; Start 06/15/16 at 09:00 Zinc Sulfate (Zinc Sulfate) 220 mg DAILY GTB Last administered on 06/17/16 08: 53; Admin Dose 220 MG; Start 06/15/16 at 09:00 Lansoprazole (Prevacid) 30 mg DAILY@06 GTB Last administered on 06/17/16 05:24 ; Admin Dose 30 MG; Start 06/15/16 at 06:00 Ferrous Sulfate (Feosol Liquid Cup) 330 mg DAILY GTB Last administered on 08:53; Admin Dose 330 MG; Start 06/15/16 at 09:00 Multivitamins (Thera-Plus) 5 ml DAILY GTB Last administered on 06/17/16 08:53 ; Admin Dose 5 ML; Start 06/15/16 at 09:00 Acetaminophen/ Hydrocodone Bitart ([place] (5/325)) 1 tab Q4H PRN GTB pain; Start 06/15/16 at 02:00 Insulin Aspart (Novolog Insulin Pen) NOVOLOG *MILD* ALGORI... Q6 SC Last administered on 06/17/16 12:50; Admin Dose 1 UNIT; Start 06/15/16 at 00:00 Miscellaneous Information 1 ea NOTE XX ; Start 06/14/16 at 23:30 Glucose (Glutose) 15 gm Q15M PRN PO DECREASED GLUCOSE; Start 06/14/16 at 23:30 Glucose (Glutose) 22.5 gm Q15M PRN PO DECREASED GLUCOSE; Start 06/14/16 at 23: 30 Dextrose (D50w Syringe) 25 ml Q15M PRN IV DECREASED GLUCOSE; Start 06/14/16 at 23:30 Dextrose (D50w Syringe) 50 ml Q15M PRN IV DECREASED GLUCOSE; Start 06/14/16 at 23:30 Glucagon (Glucagen) 1 mg Q15M PRN IM DECREASED GLUCOSE; Start 06/14/16 at 23:30 Glucose (Glutose) 15 gm Q15M PRN BUCCAL DECREASED GLUCOSE; Start 06/14/16 at 23 :30 Bisacodyl (Dulcolax Supp) 10 mg DAILY PRN [place] CONSTIPATION; Start 06/14/16 at 23 :30 Magnesium Hydroxide (Milk Of Mag) 30 ml DAILY PRN GTB CONSTIPATION; Start 06/14 at 23:30 Miscellaneous Information FLU VACCINE PREVIOU... NOTE PRN XX NOTE; Start at 03:30 Sodium Chloride (NS) 1,000 ml @ 100 mls/hr Q10H IV Last administered on 09:58; Admin Dose 100 MLS/HR; Start 06/16/16 at 06:30 Fluconazole (Diflucan) 100 mg DAILY PO Last administered on 06/17/16 08:53; Admin Dose 100 MG; Start 06/16/16 at 17:00 JASON GRIJALVA Jun 17, 2016 16:35
[2016-06-17 19:22] VITALS: BP 148/72; RESP 16
[2016-06-17 20:20] VITALS: BP 141/75; PULSE 91; RESP 19
--- NOTE | 2016-06-17 20:27 | CONS ---
DATE OF ADMISSION: 06/16/2016 DATE OF CONSULTATION: ADDENDUM As noted, the patient has numerous problems. PAST MEDICAL HISTORY: Operations as outlined. FAMILY HISTORY: Noncontributory. SOCIAL HISTORY: The patient has a history of smoking and alcohol abuse in the past. ALLERGIES: NONE TO PENICILLIN, SULFA OR FOODS. MEDICATIONS: Per chart. REVIEW OF SYSTEMS: As per HPI. PHYSICAL EXAMINATION: GENERAL: The patient is an elderly appearing male who looks older than his stated age that. SKIN: Without generalized rash. HEENT: Within normal limits. NECK: Supple. LYMPH NODES: None palpable. Tracheostomy in place. CHEST: Decreased breath sounds at the bases. HEART: Without murmur or gallop. ABDOMEN: Soft, nontender. G-tube in place without organosplenomegaly or masses. EXTREMITIES: Without cyanosis, clubbing, or edema. RECTAL/GENITAL: Exam is deferred. Blood catheter in place. NEUROLOGIC: The patient is nonverbal. ANCILLARY LABORATORY DATA: White count today is 6.9, H and H 7.4 and 21.8, platelet count 360,000. BUN and creatinine is 8/0.38. IMPRESSION AND PLAN: The patient has had pseudomonas in his urine. However, the pseudomonas is sen sitive to just amikacin, gentamicin, and tobramycin, but in addition, he is afebrile and his white c ount is normal at 6.9. He is colonized rather than infected and I would not add anything to his reg imen at this time. I want to thank Dr. Bangura for asking me to see this tyler gentleman in consu ltation. Dictated By: ANAHI ANSARI MD, JD/MARLON Conf#: [id number] DID#: [id number]
[2016-06-17] MEDS: INSULIN DETEMIR [LEVEMIR] 3ML CART SC SCH (21:08)
[2016-06-18] MEDS: INSULIN ASPART [NOVOLOG] 3 ML PEN SC SCH ×4 (00:12→18:00)
[2016-06-18] MEDS: ALBUTEROL 0.5% (NEB) 2.5 MG/0.5 ML AMP HHN SCH ×4 (02:00→20:12)
[2016-06-18] MEDS: LANSOPRAZOLE 30 MG CAP GTB SCH (05:44)
[2016-06-18 08:04] VITALS: BP 156/79; RESP 24
[2016-06-18] MEDS: SOD CHLORIDE 0.9% 1,000 ML IV SCH ×2 (08:30→18:03)
[2016-06-18 08:58] LABS: BASOPHILS % 0.3 % (0.0-2.0); EOSINOPHILS # 0.6 10^3/ul (0.0-0.5); EOSINOPHILS % 6.3 % (0.0-7.0); HEMATOCRIT 32.4 % (42.0-52.0); HEMOGLOBIN 11.4 g/dl (14.0-18.0); LYMPHOCYTES # 3.3 10^3/ul (0.8-2.9); LYMPHOCYTES % 34.8 % (15.0-51.0); MEAN CORPUSCULAR VOLUME 91.5 fl (82.0-101.0); MONOCYTE # 0.6 10^3/ul (0.3-0.9); MONOCYTES % 6.7 % (0.0-11.0); NEUTROPHIL # 4.9 10^3/ul (1.6-7.5); NEUTROPHILS % 51.9 % (39.0-77.0); PLATELET COUNT 335 10^3/UL (140-440); RED BLOOD COUNT 3.55 10^6/ul (4.70-6.10); RED CELL DISTRIBUTION WIDTH 17.7 % (11.5-14.5); UNCORRECTED WBC 9.5 10^3/ul (4.8-10.8); WHITE BLOOD COUNT 9.5 10^3/ul (4.8-10.8)
[2016-06-18 09:14] LABS: CALCIUM 8.8 mg/dl (8.4-10.2); CREATININE 0.38 mg/dl (0.61-1.24)
[2016-06-18] MEDS: ASCORBIC ACID 500 MG TAB GTB SCH (09:17)
[2016-06-18] MEDS: FLUCONAZOLE 100 MG TAB PO SCH (09:17)
[2016-06-18] MEDS: MULTIVITAMINS 5 ML CUP GTB SCH (09:17)
[2016-06-18] MEDS: FERROUS SULFATE 60 MG/ML 5ML CUP GTB SCH (09:17)
[2016-06-18] MEDS: LOSARTAN 50 MG TAB GTB SCH (09:17)
[2016-06-18] MEDS: ZINC SULFATE 220 MG CAP GTB SCH (09:18)
[2016-06-18] MEDS: MELOXICAM 15 MG TAB GTB SCH (09:18)
[2016-06-18 09:19] LABS: CONDITION 1; LH ANALYZER COMMENTS 1
--- NOTE | 2016-06-18 10:03 | PN ---
Date/Time of Note Date/Time of Note DATE: 06/18/16 TIME: 09:59 Assessment/Plan VTE Prophylaxis VTE Prophylaxis Intervention: SCD's Lines/Catheters IV Catheter Type (from [facility]): Peripheral IV Urinary Cath still in place: Yes Assessment/Plan Assessment/Plan 1. Anemia of chronic disease. - Rule out gastrointestinal bleed. - Status post blood transfusion h/h- - Dr. Marshall is asked to see patient in gastroenterology consultation. 2. MRD Pseudomonas urinary tract infection. Dr Pawel garland pt in ID consult. 3. 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 No acute issue. 4. Diabetes. Continue Levemir and sliding scale insulin. 5. Multiple decubiti. Continue wound care according to wound care recommendation. 6. Hypertension. Continue Cozaar. Further recommendations will depend on patient's hospital course. Plan of care discussed with Dr. Bangura Subjective 24 Hr Interval Summary Subjective hx not possible: pt non-verbal Constitutional: requiring IVF, requiring O2 Exam/Review of Systems Vital Signs Vitals Vital Signs Date Time Temp Pulse Resp B/P Pulse Ox O2 Delivery O2 Flow Rate FiO2 06/18/16 08:13 78 99 Aerosol 5.0 28 T Tube 06/18/16 08:04 98.0 82 156/79 Intake and Output 06/17/16 06/17/16 06/18/16 15:00 23:00 07:00 Intake Total 400 ml 1000 ml 300 ml Output Total 300 ml 800 ml Balance 400 ml 700 ml -500 ml Exam Head: atraumatic Eyes: PERRL, nl sclera ENMT: nl external ears & nose Respiratory: diminished breath sounds Cardiovascular: nl pulses Gastrointestinal: non-tender, soft Musculoskeletal: muscle weakness Neurological: lethargic Skin: other Results Result Diagram: 06/18/16 0844 06/18/16 0844 Results 24 hrs Laboratory Tests Test 06/17/16 12:46 06/17/16 17:25 06/17/16 21:05 06/18/16 00:06 Bedside Glucose 169 135 185 160 Test 06/18/16 05:42 06/18/16 08:44 Bedside Glucose 108 Anion Gap 14 Basophils # 0.0 Basophils % 0.3 Blood Morphology Comment Blood Urea Nitrogen 11 Calcium Level 8.8 Carbon Dioxide Level 26 Chloride Level 103 Creatinine 0.38 L Eosinophils # 0.6 H Eosinophils % 6.3 Glucose Level 136 Hematocrit 32.4 #L Hemoglobin 11.4 #L Lymphocytes # 3.3 H Lymphocytes % 34.8 Mean Corpuscular Hemoglobin 32.0 Mean Corpuscular Hemoglobin Concent 35.0 Mean Corpuscular Volume 91.5 Mean Platelet Volume 7.0 L Monocytes # 0.6 Monocytes % 6.7 Neutrophils # 4.9 Neutrophils % 51.9 Nucleated Red Blood Cells # 0.0 Nucleated Red Blood Cells % 0.0 Platelet Count 335 Potassium Level 4.0 Red Blood Count 3.55 #L Red Cell Distribution Width 17.7 H Sodium Level 139 White Blood Count 9.5 # Medications Medications Current Medications Acetaminophen (Tylenol Liquid) 650 mg Q4H PRN GTB MILD PAIN LEVEL 1-3; Start at 22:30 Acetaminophen (Tylenol Liquid) 1,000 mg Q4H PRN GTB MODERATE PAIN LEVEL 4-6; Start 06/14/16 at 22:00 Ascorbic Acid (Vitamin C) 500 mg DAILY GTB Last administered on 06/18/16 09:17 ; Admin Dose 500 MG; Start 06/15/16 at 09:00 Insulin Detemir (Levemir) 20 unit QHS SC Last administered on 06/17/16 21:08; Admin Dose 20 UNIT; Start 06/14/16 at 23:00 Losartan Potassium (Cozaar) 50 mg DAILY GTB Last administered on 06/18/16 09: 17; Admin Dose 50 MG; Start 06/15/16 at 09:00 Meloxicam (Mobic) 15 mg DAILY GTB Last administered on 06/18/16 09:18; Admin Dose 15 MG; Start 06/15/16 at 09:00 Zinc Sulfate (Zinc Sulfate) 220 mg DAILY GTB Last administered on 06/18/16 09: 18; Admin Dose 220 MG; Start 06/15/16 at 09:00 Lansoprazole (Prevacid) 30 mg DAILY@06 GTB Last administered on 06/18/16 05:44 ; Admin Dose 30 MG; Start 06/15/16 at 06:00 Ferrous Sulfate (Feosol Liquid Cup) 330 mg DAILY GTB Last administered on 09:17; Admin Dose 330 MG; Start 06/15/16 at 09:00 Multivitamins (Thera-Plus) 5 ml DAILY GTB Last administered on 06/18/16 09:17 ; Admin Dose 5 ML; Start 06/15/16 at 09:00 Acetaminophen/ Hydrocodone Bitart ([place] (5/325)) 1 tab Q4H PRN GTB pain; Start 06/15/16 at 02:00 Insulin Aspart (Novolog Insulin Pen) NOVOLOG *MILD* ALGORI... Q6 SC Last administered on 06/18/16 00:12; Admin Dose 1 UNIT; Start 06/15/16 at 00:00 Miscellaneous Information 1 ea NOTE XX ; Start 06/14/16 at 23:30 Glucose (Glutose) 15 gm Q15M PRN PO DECREASED GLUCOSE; Start 06/14/16 at 23:30 Glucose (Glutose) 22.5 gm Q15M PRN PO DECREASED GLUCOSE; Start 06/14/16 at 23: 30 Dextrose (D50w Syringe) 25 ml Q15M PRN IV DECREASED GLUCOSE; Start 06/14/16 at 23:30 Dextrose (D50w Syringe) 50 ml Q15M PRN IV DECREASED GLUCOSE; Start 06/14/16 at 23:30 Glucagon (Glucagen) 1 mg Q15M PRN IM DECREASED GLUCOSE; Start 06/14/16 at 23:30 Glucose (Glutose) 15 gm Q15M PRN BUCCAL DECREASED GLUCOSE; Start 06/14/16 at 23 :30 Bisacodyl (Dulcolax Supp) 10 mg DAILY PRN [place] CONSTIPATION; Start 06/14/16 at 23 :30 Magnesium Hydroxide (Milk Of Mag) 30 ml DAILY PRN GTB CONSTIPATION; Start 06/14 at 23:30 Miscellaneous Information FLU VACCINE PREVIOU... NOTE PRN XX NOTE; Start at 03:30 Sodium Chloride (NS) 1,000 ml @ 100 mls/hr Q10H IV Last administered on 09:58; Admin Dose 100 MLS/HR; Start 06/16/16 at 06:30 Fluconazole (Diflucan) 100 mg DAILY PO Last administered on 06/18/16 09:17; Admin Dose 100 MG; Start 06/16/16 at 17:00 CHECO AGUILLON Jun 18, 2016 10:03
--- NOTE | 2016-06-18 10:14 | CONS ---
Date/Time of Note Date/Time of Note DATE: 06/18/16 TIME: 10:13 Assessment/Plan Assessment/Plan Chief Complaint/Hosp Course D PROGRESS NOTE TOTAL ABX DAY # Diflucan s/p Cefepime x 3 Days 24H INTERVAL SUMMARY * Patient is sleeping, Trach = T-piece, VSS, NAD, family is present attending to pt w/wash cloth states patient is "gabino" * No fevers, VSS, NAD * BCx (-), MRSA (-) * RESPIRATORY CULTURE Final Organism 1 CITROBACTER KOSERI QUANTITY 1+ Organism 2 K.PNEUMONIAE SSP PNEUMONIAE QUANTITY 1+ Organism 3 NORMAL RESPIRATORY CRISTINO QUANTITY 1+ C KOSERI K PNE SPP M.I.C. RX M.I.C. RX --------- --- --------- --- CEFAZOLIN I CEFOTAXIME S S CIPROFLOXACIN <=0.25 S 0.5 S GENTAMICIN <=1 S <=1 S LEVOFLOXACIN <=0.12 S 1 S TOBRAMYCIN <=1 S <=1 S TRIMETHOPRIM/SULFAMETHOXAZOLE <=20 S <=20 S URINE CULTURE Final Organism 1 PSEUDOMONAS AERUGINOSA COLONY COUNT <10,000 CFU/ml Organism 2 ITZEL ALBICANS COLONY COUNT 50,000 - 60,000 CFU/ml P.AERUG M.I.C. 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 Anemia of chronic disease. Rule out gastrointestinal bleed->s/p transfused 2 units of PRBC 2. GNR Bacteriuria vs Possible early UTI, no fevers, no leukocytosis, no evidence sepsis * URINE CULTURE Final Organism 1 PSEUDOMONAS AERUGINOSA COLONY COUNT <10,000 CFU/ml Organism 2 ITZEL ALBICANS COLONY COUNT 50,000 - 60,000 CFU/ml 3. 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 Diabetes. 5. Multiple decubiti. ( )MRSA Nares -> INVASIVES: ABX ALLERGY: KNDA CURRENT ABX: TOTAL ABX DAY # Diflucan s/p Cefepime x #3 days ID RECOMMENDATIONS: 1. No compelling evidence of infection - likely colonized trach and asymptomatic bacteriuria 2. ON Diflucan for yeast 3. Observe OFF Cefepime GNR coverage . Problems: Consultation Date/Type/Reason Admit Date/Time Jun 16, 2016 at 12:01 Initial Consult Date Exam/Review of Systems Vital Signs Vitals Vital Signs Date Time Temp Pulse Resp B/P Pulse Ox O2 Delivery O2 Flow Rate FiO2 06/18/16 08:13 78 99 Aerosol 5.0 28 T Tube 06/18/16 08:04 98.0 82 156/79 Intake and Output 06/17/16 06/17/16 06/18/16 15:00 23:00 07:00 Intake Total 400 ml 1000 ml 300 ml Output Total 300 ml 800 ml Balance 400 ml 700 ml -500 ml Results Result Diagram: 06/18/16 0844 06/18/16 0844 Results 24 hrs Laboratory Tests Test 06/17/16 12:46 06/17/16 17:25 06/17/16 21:05 06/18/16 00:06 Bedside Glucose 169 135 185 160 Test 06/18/16 05:42 06/18/16 08:44 Bedside Glucose 108 Anion Gap 14 Basophils # 0.0 Basophils % 0.3 Blood Morphology Comment Blood Urea Nitrogen 11 Calcium Level 8.8 Carbon Dioxide Level 26 Chloride Level 103 Creatinine 0.38 L Eosinophils # 0.6 H Eosinophils % 6.3 Glucose Level 136 Hematocrit 32.4 #L Hemoglobin 11.4 #L Lymphocytes # 3.3 H Lymphocytes % 34.8 Mean Corpuscular Hemoglobin 32.0 Mean Corpuscular Hemoglobin Concent 35.0 Mean Corpuscular Volume 91.5 Mean Platelet Volume 7.0 L Monocytes # 0.6 Monocytes % 6.7 Neutrophils # 4.9 Neutrophils % 51.9 Nucleated Red Blood Cells # 0.0 Nucleated Red Blood Cells % 0.0 Platelet Count 335 Potassium Level 4.0 Red Blood Count 3.55 #L Red Cell Distribution Width 17.7 H Sodium Level 139 White Blood Count 9.5 # Medications Medications Current Medications Acetaminophen (Tylenol Liquid) 650 mg Q4H PRN GTB MILD PAIN LEVEL 1-3; Start at 22:30 Acetaminophen (Tylenol Liquid) 1,000 mg Q4H PRN GTB MODERATE PAIN LEVEL 4-6; Start 06/14/16 at 22:00 Ascorbic Acid (Vitamin C) 500 mg DAILY GTB Last administered on 06/18/16 09:17 ; Admin Dose 500 MG; Start 06/15/16 at 09:00 Insulin Detemir (Levemir) 20 unit QHS SC Last administered on 06/17/16 21:08; Admin Dose 20 UNIT; Start 06/14/16 at 23:00 Losartan Potassium (Cozaar) 50 mg DAILY GTB Last administered on 06/18/16 09: 17; Admin Dose 50 MG; Start 06/15/16 at 09:00 Meloxicam (Mobic) 15 mg DAILY GTB Last administered on 06/18/16 09:18; Admin Dose 15 MG; Start 06/15/16 at 09:00 Zinc Sulfate (Zinc Sulfate) 220 mg DAILY GTB Last administered on 06/18/16 09: 18; Admin Dose 220 MG; Start 06/15/16 at 09:00 Lansoprazole (Prevacid) 30 mg DAILY@06 GTB Last administered on 06/18/16 05:44 ; Admin Dose 30 MG; Start 06/15/16 at 06:00 Ferrous Sulfate (Feosol Liquid Cup) 330 mg DAILY GTB Last administered on 09:17; Admin Dose 330 MG; Start 06/15/16 at 09:00 Multivitamins (Thera-Plus) 5 ml DAILY GTB Last administered on 06/18/16 09:17 ; Admin Dose 5 ML; Start 06/15/16 at 09:00 Acetaminophen/ Hydrocodone Bitart ([place] (5/325)) 1 tab Q4H PRN GTB pain; Start 06/15/16 at 02:00 Insulin Aspart (Novolog Insulin Pen) NOVOLOG *MILD* ALGORI... Q6 SC Last administered on 06/18/16 00:12; Admin Dose 1 UNIT; Start 06/15/16 at 00:00 Miscellaneous Information 1 ea NOTE XX ; Start 06/14/16 at 23:30 Glucose (Glutose) 15 gm Q15M PRN PO DECREASED GLUCOSE; Start 06/14/16 at 23:30 Glucose (Glutose) 22.5 gm Q15M PRN PO DECREASED GLUCOSE; Start 06/14/16 at 23: 30 Dextrose (D50w Syringe) 25 ml Q15M PRN IV DECREASED GLUCOSE; Start 06/14/16 at 23:30 Dextrose (D50w Syringe) 50 ml Q15M PRN IV DECREASED GLUCOSE; Start 06/14/16 at 23:30 Glucagon (Glucagen) 1 mg Q15M PRN IM DECREASED GLUCOSE; Start 06/14/16 at 23:30 Glucose (Glutose) 15 gm Q15M PRN BUCCAL DECREASED GLUCOSE; Start 06/14/16 at 23 :30 Bisacodyl (Dulcolax Supp) 10 mg DAILY PRN [place] CONSTIPATION; Start 06/14/16 at 23 :30 Magnesium Hydroxide (Milk Of Mag) 30 ml DAILY PRN GTB CONSTIPATION; Start 06/14 at 23:30 Miscellaneous Information FLU VACCINE PREVIOU... NOTE PRN XX NOTE; Start at 03:30 Sodium Chloride (NS) 1,000 ml @ 100 mls/hr Q10H IV Last administered on 09:58; Admin Dose 100 MLS/HR; Start 06/16/16 at 06:30 Fluconazole (Diflucan) 100 mg DAILY PO Last administered on 06/18/16 09:17; Admin Dose 100 MG; Start 06/16/16 at 17:00 RODOLFO DUMONT NP Jun 18, 2016 10:13
--- NOTE | 2016-06-18 12:49 | CONS ---
DATE OF ADMISSION: 06/16/2016 DATE OF CONSULTATION: 06/17/2016 TYPE OF CONSULTATION: Infectious Diseases. REASON FOR CONSULTATION: Antibiotic management. HISTORY OF PRESENT ILLNESS: Chio Wallis is an 80-year-old male resident of a skilled [facility] facility. His past problems include: 1. 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 The patie nt was noted to have a left temporal lobe lesion. Since then he has been nonverbal. 2. Status post tracheostomy. 3. Status post G-tube placement. Recently had a hemoglobin of 7 and then 7.4, and was taken to the emergency room where he was noted a possible urinary tract infection, in addition to his anemia. He does not have a history of seizur es, but he has a tracheostomy and G-tube placement as noted. PAST MEDICAL HISTORY: The patient recently had possible ischemic bowel, acute kidney injury, and se evette sepsis in February 2016, which was polymicrobial. On admission, his white count was 10.4, H and H of 8.1 and 24.3, platelet count of 433,000. White c ount on 06/16/2016 was 6.9. His BUN and creatinine was 13/0.39; on admission it was actually 18/0.4 4, and on 06/16/2016, was 8/0.38. He grew Pseudomonas aeruginosa and Marilu albicans from his urin e. The pseudomonas was sensitive to amikacin and gentamicin; just the aminoglycosides, and was less than 10,000 colony-forming units/mL, and 50 to 60,000 Marilu albicans. The patient was started on fluconazole. Currently, he is afebrile and his white count is 6.9. His stool was negative. He rojas s a Blood catheter in place for urinary retention. PAST MEDICAL HISTORY: Operations as outlined. FAMILY HISTORY: Noncontributory. SOCIAL HISTORY: Does not smoke, drink, or abuse drugs. ALLERGIES: NONE TO PENICILLIN, SULFA, OR FOODS. MEDICATIONS: Per chart. REVIEW OF SYSTEMS: As per HPI. PHYSICAL EXAMINATION: GENERAL: The patient is an elderly-appearing male, who is nonverbal and looks older than his stated age. SKIN: Without generalized rash. Multiple decubiti. HEENT: Within normal limits. NECK: Tracheostomy without discharge. LYMPH NODES: None palpable. CHEST: Decreased breath sounds at the bases. HEART: Without murmur or gallop. ABDOMEN: Soft, nontender, without organosplenomegaly or masses. The abdomen has a G-tube without di scharge. EXTREMITIES: Contractured with no edema. RECTAL AND GENITAL: Deferred. NEUROLOGIC: Nonverbal contracted elderly male. Dictated By: ANAHI ANSARI MD, JD/MARLON Conf#: [id number] DID#: [id number]
[2016-06-18 19:50] VITALS: BP 168/92; RESP 16
[2016-06-18] MEDS: INSULIN DETEMIR [LEVEMIR] 3ML CART SC SCH (21:22)
[2016-06-19] VITALS: BP 144/81; PULSE 110; RESP 22
[2016-06-19] MEDS: SOD CHLORIDE 0.9% 1,000 ML IV SCH ×5 (00:32→20:41)
[2016-06-19] MEDS: ALBUTEROL 0.5% (NEB) 2.5 MG/0.5 ML AMP HHN SCH ×4 (01:00→19:54)
[2016-06-19] MEDS: INSULIN ASPART [NOVOLOG] 3 ML PEN SC SCH ×4 (06:00→18:00)
[2016-06-19] MEDS: PANTOPRAZOLE 40 MG INJ IV SCH (06:18)
[2016-06-19 06:39] LABS: CREATININE 0.35 mg/dl (0.61-1.24)
[2016-06-19 06:40] LABS: CALCIUM 8.8 mg/dl (8.4-10.2)
[2016-06-19 07:46] VITALS: BP 138/78; RESP 22
[2016-06-19] MEDS: MULTIVITAMINS 5 ML CUP GTB SCH (08:01)
[2016-06-19] MEDS: FLUCONAZOLE 100 MG TAB PO SCH (08:01)
[2016-06-19] MEDS: LOSARTAN 50 MG TAB GTB SCH (08:01)
[2016-06-19] MEDS: MELOXICAM 15 MG TAB GTB SCH (08:01)
[2016-06-19] MEDS: ASCORBIC ACID 500 MG TAB GTB SCH (08:01)
[2016-06-19] MEDS: FERROUS SULFATE 60 MG/ML 5ML CUP GTB SCH (08:01)
[2016-06-19] MEDS: ZINC SULFATE 220 MG CAP GTB SCH (08:01)
[2016-06-19 08:32] LABS: BASOPHILS % 0.3 % (0.0-2.0); EOSINOPHILS # 0.5 10^3/ul (0.0-0.5); EOSINOPHILS % 4.4 % (0.0-7.0); HEMATOCRIT 35.5 % (42.0-52.0); HEMOGLOBIN 12.3 g/dl (14.0-18.0); LYMPHOCYTES # 2.7 10^3/ul (0.8-2.9); LYMPHOCYTES % 24.2 % (15.0-51.0); MEAN CORPUSCULAR HEMOGLOBIN 32.2 pg (29.0-33.0); MEAN CORPUSCULAR HGB CONC 34.6 g/dl (32.0-37.0); MEAN PLATELET VOLUME 8.5 fl (7.4-10.4); MONOCYTE # 0.6 10^3/ul (0.3-0.9); MONOCYTES % 5.8 % (0.0-11.0); NEUTROPHIL # 7.3 10^3/ul (1.6-7.5); NEUTROPHILS % 65.3 % (39.0-77.0); PLATELET COUNT 277 10^3/UL (140-440); RED BLOOD COUNT 3.82 10^6/ul (4.70-6.10); RED CELL DISTRIBUTION WIDTH 17.6 % (11.5-14.5); WHITE BLOOD COUNT 11.2 10^3/ul (4.8-10.8)
[2016-06-19 08:40] LABS: CONDITION 1; LH ANALYZER COMMENTS 1; SUSPECT 1; UNCORRECTED WBC 12.6 10^3/ul (4.8-10.8)
[2016-06-19 09:43] LABS: ANISOCYTOSIS 1+
--- NOTE | 2016-06-19 10:43 | PN ---
Date/Time of Note Date/Time of Note DATE: 06/19/16 TIME: 10:38 Assessment/Plan VTE Prophylaxis VTE Prophylaxis Intervention: SCD's Lines/Catheters IV [facility] Type [facility] Peripheral IV Urinary Cath still in place: Yes Assessment/Plan Assessment/Plan 1. Anemia of chronic disease. - Rule out gastrointestinal bleed. - Status post blood transfusion h/h - Dr. Marshall is asked to see patient in gastroenterology consultation. 2. MRD Pseudomonas urinary tract infection. Dr Pawel garland pt in ID consult. 3. 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 No acute issue. 4. Diabetes. Continue Levemir and sliding scale insulin. 5. Multiple decubiti. Continue wound care according to wound care recommendation. 6. Hypertension. Continue Cozaar. SCD's , protonix Further recommendations will depend on patient's hospital course. Plan of care discussed with Dr. Bangura Subjective 24 Hr Interval Summary Free Text/Dictation NAD, seems comfortable, tolerates feeding, no new issues reported by staff. Constitutional: requiring O2 Exam/Review of Systems Vital Signs Vitals Vital Signs Date Time Temp Pulse Resp B/P Pulse Ox O2 Delivery O2 Flow Rate FiO2 06/19/16 09:20 102 22 99 Aerosol Mask 5.0 28 T Tube 06/19/16 07:46 98.5 138/78 Intake and Output 06/18/16 06/18/16 06/19/16 15:00 23:00 07:00 Intake Total 1480 ml 1980 ml 1810 ml Output Total 800 ml 1000 ml Balance 1480 ml 1180 ml 810 ml Exam Constitutional: well developed Eyes: nl sclera ENMT: nl external ears & nose Neck: non-tender Respiratory: diminished breath sounds Cardiovascular: nl pulses Gastrointestinal: non-tender, soft Musculoskeletal: nl extremities to inspection Neurological: nl mental status, nl speech Skin: other Lymph: nontender Results Result Diagram: 06/19/16 0458 06/19/16 0453 Results 24 hrs Laboratory Tests Test 06/18/16 11:44 06/18/16 13:00 06/18/16 17:27 06/18/16 21:20 Bedside Glucose 155 137 142 Stool Occult Blood NEGATIVE Test 06/19/16 00:30 06/19/16 04:53 06/19/16 04:58 06/19/16 06:10 Bedside Glucose 128 114 Anion Gap 13 Blood Urea Nitrogen 12 Calcium Level 8.8 Carbon Dioxide Level 25 Chloride Level 102 Creatinine 0.35 L Glucose Level 99 Potassium Level 4.0 Sodium Level 136 Anisocytosis 1+ Basophils # 0.0 Basophils % 0.3 Blood Morphology Comment Differential Comment AUTO w/SCAN Eosinophils # 0.5 Eosinophils % 4.4 Hematocrit 35.5 L Hemoglobin 12.3 L Lymphocytes # 2.7 Lymphocytes % 24.2 Mean Corpuscular Hemoglobin 32.2 Mean Corpuscular Hemoglobin Concent 34.6 Mean Corpuscular Volume 93.0 Mean Platelet Volume 8.5 # Monocytes # 0.6 Monocytes % 5.8 Neutrophils # 7.3 Neutrophils % 65.3 Nucleated Red Blood Cells # 0.0 Nucleated Red Blood Cells % 0.0 Platelet Count 277 Red Blood Count 3.82 L Red Cell Distribution Width 17.6 H White Blood Count 11.2 H Medications Medications Current Medications Acetaminophen (Tylenol Liquid) 650 mg Q4H PRN GTB MILD PAIN LEVEL 1-3; Start at 22:30 Acetaminophen (Tylenol Liquid) 1,000 mg Q4H PRN GTB MODERATE PAIN LEVEL 4-6; Start 06/14/16 at 22:00 Ascorbic Acid (Vitamin C) 500 mg DAILY GTB Last administered on 06/19/16 08:01 ; Admin Dose 500 MG; Start 06/15/16 at 09:00 Insulin Detemir (Levemir) 20 unit QHS SC Last administered on 06/18/16 21:22; Admin Dose 20 UNIT; Start 06/14/16 at 23:00 Losartan Potassium (Cozaar) 50 mg DAILY GTB Last administered on 06/19/16 08: 01; Admin Dose 50 MG; Start 06/15/16 at 09:00 Meloxicam (Mobic) 15 mg DAILY GTB Last administered on 06/19/16 08:01; Admin Dose 15 MG; Start 06/15/16 at 09:00 Zinc Sulfate (Zinc Sulfate) 220 mg DAILY GTB Last administered on 06/19/16 08: 01; Admin Dose 220 MG; Start 06/15/16 at 09:00 Ferrous Sulfate (Feosol Liquid Cup) 330 mg DAILY GTB Last administered on 08:01; Admin Dose 330 MG; Start 06/15/16 at 09:00 Multivitamins (Thera-Plus) 5 ml DAILY GTB Last administered on 06/19/16 08:01 ; Admin Dose 5 ML; Start 06/15/16 at 09:00 Acetaminophen/ Hydrocodone Bitart ([place] (5/325)) 1 tab Q4H PRN GTB pain; Start 06/15/16 at 02:00 Insulin Aspart (Novolog Insulin Pen) NOVOLOG *MILD* ALGORI... Q6 SC Last administered on 06/18/16 12:56; Admin Dose 1 UNIT; Start 06/15/16 at 00:00 Miscellaneous Information 1 ea NOTE XX ; Start 06/14/16 at 23:30 Glucose (Glutose) 15 gm Q15M PRN PO DECREASED GLUCOSE; Start 06/14/16 at 23:30 Glucose (Glutose) 22.5 gm Q15M PRN PO DECREASED GLUCOSE; Start 06/14/16 at 23: 30 Dextrose (D50w Syringe) 25 ml Q15M PRN IV DECREASED GLUCOSE; Start 06/14/16 at 23:30 Dextrose (D50w Syringe) 50 ml Q15M PRN IV DECREASED GLUCOSE; Start 06/14/16 at 23:30 Glucagon (Glucagen) 1 mg Q15M PRN IM DECREASED GLUCOSE; Start 06/14/16 at 23:30 Glucose (Glutose) 15 gm Q15M PRN BUCCAL DECREASED GLUCOSE; Start 06/14/16 at 23 :30 Bisacodyl (Dulcolax Supp) 10 mg DAILY PRN MD CONSTIPATION; Start 06/14/16 at 23 :30 Magnesium Hydroxide (Milk Of Mag) 30 ml DAILY PRN GTB CONSTIPATION; Start 06/14 at 23:30 Miscellaneous Information FLU VACCINE PREVIOU... NOTE PRN XX NOTE; Start at 03:30 Sodium Chloride (NS) 1,000 ml @ 100 mls/hr Q10H IV Last administered on 00:32; Admin Dose 100 MLS/HR; Start 06/16/16 at 06:30 Fluconazole (Diflucan) 100 mg DAILY PO Last administered on 06/19/16 08:01; Admin Dose 100 MG; Start 06/16/16 at 17:00 Pantoprazole (Protonix Iv) 40 mg DAILY@06 IV Last administered on 1/29/17at 06: 18; Admin Dose 40 MG; Start 06/19/16 at 06:00 CHECO AGUILLON Jun 19, 2016 10:43
--- NOTE | 2016-06-19 16:50 | CONS ---
Date/Time of Note Date/Time of Note DATE: 06/19/16 TIME: 16:49 Assessment/Plan Assessment/Plan Chief Complaint/Hosp Course D PROGRESS NOTE TOTAL ABX DAY # Diflucan s/p Cefepime x 3 Days 24H INTERVAL SUMMARY * No fevers, no new issues, resting comfortably w/T-piece, VSS, NAD * No fevers, VSS, NAD * BCx (-), MRSA (-) * RESPIRATORY CULTURE Final Organism 1 CITROBACTER KOSERI QUANTITY 1+ Organism 2 K.PNEUMONIAE SSP PNEUMONIAE QUANTITY 1+ Organism 3 NORMAL RESPIRATORY CRISTINO QUANTITY 1+ C KOSERI K PNE SPP M.I.C. RX M.I.C. RX --------- --- --------- --- CEFAZOLIN I CEFOTAXIME S S CIPROFLOXACIN <=0.25 S 0.5 S GENTAMICIN <=1 S <=1 S LEVOFLOXACIN <=0.12 S 1 S TOBRAMYCIN <=1 S <=1 S TRIMETHOPRIM/SULFAMETHOXAZOLE <=20 S <=20 S URINE CULTURE Final Organism 1 PSEUDOMONAS AERUGINOSA COLONY COUNT <10,000 CFU/ml Organism 2 ITZEL ALBICANS COLONY COUNT 50,000 - 60,000 CFU/ml P.AERUG M.I.C. 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 Anemia of chronic disease. Rule out gastrointestinal bleed->s/p transfused 2 units of PRBC 2. GNR Bacteriuria vs Possible early UTI, no fevers, no leukocytosis, no evidence sepsis * URINE CULTURE Final Organism 1 PSEUDOMONAS AERUGINOSA COLONY COUNT <10,000 CFU/ml Organism 2 ITZEL ALBICANS COLONY COUNT 50,000 - 60,000 CFU/ml 3. 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 Diabetes. 5. Multiple decubiti. 6. Frequent stools - check for C.Diff INVASIVES: Trach, Peg ABX ALLERGY: KNDA CURRENT ABX: TOTAL ABX DAY # Diflucan s/p Cefepime x #3 days ID RECOMMENDATIONS: 1. No compelling evidence of infection - likely colonized trach and asymptomatic bacteriuria 2. ON Diflucan for yeast - Check Stool for C.Diff 3. Observe OFF Cefepime GNR coverage . Problems: Consultation Date/Type/Reason Admit Date/Time Jun 16, 2016 at 12:01 Exam/Review of Systems Vital Signs Vitals Vital Signs Date Time Temp Pulse Resp B/P Pulse Ox O2 Delivery O2 Flow Rate FiO2 06/19/16 16:28 105 22 100 Aerosol 5.0 28 T Tube 06/19/16 07:46 98.5 138/78 Intake and Output 06/18/16 06/18/16 06/19/16 15:00 23:00 07:00 Intake Total 1480 ml 1980 ml 1810 ml Output Total 800 ml 1000 ml Balance 1480 ml 1180 ml 810 ml Results Result Diagram: 06/19/16 0458 06/19/16 0453 Results 24 hrs Laboratory Tests Test 06/18/16 17:27 06/18/16 21:20 06/19/16 00:30 06/19/16 04:53 Bedside Glucose 137 142 128 Anion Gap 13 Blood Urea Nitrogen 12 Calcium Level 8.8 Carbon Dioxide Level 25 Chloride Level 102 Creatinine 0.35 L Glucose Level 99 Potassium Level 4.0 Sodium Level 136 Test 06/19/16 04:58 06/19/16 06:10 06/19/16 11:55 Anisocytosis 1+ Basophils # 0.0 Basophils % 0.3 Blood Morphology Comment Differential Comment AUTO w/SCAN Eosinophils # 0.5 Eosinophils % 4.4 Hematocrit 35.5 L Hemoglobin 12.3 L Lymphocytes # 2.7 Lymphocytes % 24.2 Mean Corpuscular Hemoglobin 32.2 Mean Corpuscular Hemoglobin Concent 34.6 Mean Corpuscular Volume 93.0 Mean Platelet Volume 8.5 # Monocytes # 0.6 Monocytes % 5.8 Neutrophils # 7.3 Neutrophils % 65.3 Nucleated Red Blood Cells # 0.0 Nucleated Red Blood Cells % 0.0 Platelet Count 277 Red Blood Count 3.82 L Red Cell Distribution Width 17.6 H White Blood Count 11.2 H Bedside Glucose 114 175 Medications Medications Current Medications Acetaminophen (Tylenol Liquid) 650 mg Q4H PRN GTB MILD PAIN LEVEL 1-3; Start at 22:30 Acetaminophen (Tylenol Liquid) 1,000 mg Q4H PRN GTB MODERATE PAIN LEVEL 4-6; Start 06/14/16 at 22:00 Ascorbic Acid (Vitamin C) 500 mg DAILY GTB Last administered on 06/19/16 08:01 ; Admin Dose 500 MG; Start 06/15/16 at 09:00 Insulin Detemir (Levemir) 20 unit QHS SC Last administered on 06/18/16 21:22; Admin Dose 20 UNIT; Start 06/14/16 at 23:00 Losartan Potassium (Cozaar) 50 mg DAILY GTB Last administered on 06/19/16 08: 01; Admin Dose 50 MG; Start 06/15/16 at 09:00 Meloxicam (Mobic) 15 mg DAILY GTB Last administered on 06/19/16 08:01; Admin Dose 15 MG; Start 06/15/16 at 09:00 Zinc Sulfate (Zinc Sulfate) 220 mg DAILY GTB Last administered on 06/19/16 08: 01; Admin Dose 220 MG; Start 06/15/16 at 09:00 Ferrous Sulfate (Feosol Liquid Cup) 330 mg DAILY GTB Last administered on 08:01; Admin Dose 330 MG; Start 06/15/16 at 09:00 Multivitamins (Thera-Plus) 5 ml DAILY GTB Last administered on 06/19/16 08:01 ; Admin Dose 5 ML; Start 06/15/16 at 09:00 Acetaminophen/ Hydrocodone Bitart ([place] (5/325)) 1 tab Q4H PRN GTB pain; Start 06/15/16 at 02:00 Insulin Aspart (Novolog Insulin Pen) NOVOLOG *MILD* ALGORI... Q6 SC Last administered on 06/19/16 12:27; Admin Dose 1 UNIT; Start 06/15/16 at 00:00 Miscellaneous Information 1 ea NOTE XX ; Start 06/14/16 at 23:30 Glucose (Glutose) 15 gm Q15M PRN PO DECREASED GLUCOSE; Start 06/14/16 at 23:30 Glucose (Glutose) 22.5 gm Q15M PRN PO DECREASED GLUCOSE; Start 06/14/16 at 23: 30 Dextrose (D50w Syringe) 25 ml Q15M PRN IV DECREASED GLUCOSE; Start 06/14/16 at 23:30 Dextrose (D50w Syringe) 50 ml Q15M PRN IV DECREASED GLUCOSE; Start 06/14/16 at 23:30 Glucagon (Glucagen) 1 mg Q15M PRN IM DECREASED GLUCOSE; Start 06/14/16 at 23:30 Glucose (Glutose) 15 gm Q15M PRN BUCCAL DECREASED GLUCOSE; Start 06/14/16 at 23 :30 Bisacodyl (Dulcolax Supp) 10 mg DAILY PRN [place] CONSTIPATION; Start 06/14/16 at 23 :30 Magnesium Hydroxide (Milk Of Mag) 30 ml DAILY PRN GTB CONSTIPATION; Start 06/14 at 23:30 Miscellaneous Information FLU VACCINE PREVIOU... NOTE PRN XX NOTE; Start at 03:30 Sodium Chloride (NS) 1,000 ml @ 100 mls/hr Q10H IV Last administered on 10:38; Admin Dose 100 MLS/HR; Start 06/16/16 at 06:30 Fluconazole (Diflucan) 100 mg DAILY PO Last administered on 06/19/16 08:01; Admin Dose 100 MG; Start 06/16/16 at 17:00 Pantoprazole (Protonix Iv) 40 mg DAILY@06 IV Last administered on 06/19/16 06: 18; Admin Dose 40 MG; Start 06/19/16 at 06:00 RODOLFO DUMONT NP Jun 19, 2016 16:50
[2016-06-19 19:33] VITALS: BP 140/74; RESP 22
[2016-06-19] MEDS: INSULIN DETEMIR [LEVEMIR] 3ML CART SC SCH (20:45)
[2016-06-20] MEDS: INSULIN ASPART [NOVOLOG] 3 ML PEN SC SCH ×4 (00:30→17:58)
[2016-06-20] MEDS: SOD CHLORIDE 0.9% 1,000 ML IV SCH ×4 (00:30→17:13)
[2016-06-20] MEDS: ALBUTEROL 0.5% (NEB) 2.5 MG/0.5 ML AMP HHN SCH ×4 (01:13→19:50)
[2016-06-20 05:34] LABS: POTASSIUM 3.7 mmol/L (3.5-5.1)
[2016-06-20 05:37] LABS: CREATININE 0.37 mg/dl (0.61-1.24)
[2016-06-20 05:38] LABS: CALCIUM 8.4 mg/dl (8.4-10.2)
[2016-06-20] MEDS: PANTOPRAZOLE 40 MG INJ IV SCH (05:49)
[2016-06-20 06:25] LABS: BASOPHILS % 0.4 % (0.0-2.0); EOSINOPHILS # 0.6 10^3/ul (0.0-0.5); EOSINOPHILS % 6.4 % (0.0-7.0); HEMATOCRIT 31.3 % (42.0-52.0); LYMPHOCYTES # 2.3 10^3/ul (0.8-2.9); LYMPHOCYTES % 25.1 % (15.0-51.0); MEAN CORPUSCULAR HEMOGLOBIN 32.3 pg (29.0-33.0); MEAN CORPUSCULAR VOLUME 92.1 fl (82.0-101.0); MEAN PLATELET VOLUME 7.8 fl (7.4-10.4); MONOCYTE # 0.5 10^3/ul (0.3-0.9); MONOCYTES % 5.9 % (0.0-11.0); NEUTROPHIL # 5.7 10^3/ul (1.6-7.5); NEUTROPHILS % 62.2 % (39.0-77.0); PLATELET COUNT 322 10^3/UL (140-440); UNCORRECTED WBC 9.2 10^3/ul (4.8-10.8); WHITE BLOOD COUNT 9.2 10^3/ul (4.8-10.8)
[2016-06-20 06:38] LABS: CONDITION 1; LH ANALYZER COMMENTS 1
[2016-06-20 07:51] VITALS: BP_SYST 135; BP_SYST 180; BP_DIAS 101; BP_DIAS 77; RESP 22
[2016-06-20] MEDS: ZINC SULFATE 220 MG CAP GTB SCH (08:41)
[2016-06-20] MEDS: MULTIVITAMINS 5 ML CUP GTB SCH (08:41)
[2016-06-20] MEDS: ASCORBIC ACID 500 MG TAB GTB SCH (08:41)
[2016-06-20] MEDS: FERROUS SULFATE 60 MG/ML 5ML CUP GTB SCH (08:41)
[2016-06-20] MEDS: MELOXICAM 15 MG TAB GTB SCH (08:42)
[2016-06-20] MEDS: LOSARTAN 50 MG TAB GTB SCH (08:42)
[2016-06-20] MEDS: FLUCONAZOLE 100 MG TAB PO SCH (08:42)
[2016-06-20 12:00] VITALS: BP 130/74; PULSE 88; RESP 18
--- NOTE | 2016-06-20 13:15 | PN ---
DATE: 06/20/2016 SUBJECTIVE: No acute changes. The patient is lying comfortably in bed. No fevers overnight. LABORATORIES: WBC today 9.2, no shift, no bands. BUN 13, creatinine 0.37. ANTIMICROBIALS: The patient is on fluconazole. PHYSICAL EXAMINATION: GENERAL: This is a fragile, elderly man who is lying comfortably in bed. HEENT: Head atraumatic, normocephalic. Sclerae anicteric. Buccal mucosa dry. NECK: Supple, trachea midline. CHEST: Rise symmetrical. Breath sounds diminished. HEART: S1, S2. ABDOMEN: Soft, bowel tones present. EXTREMITIES: Without cyanosis. ASSESSMENT: 1. Bacteriuria without evidence of sepsis. 2. Chronic respiratory failure with sputum culture, grew multiple Corynebacterium likely colonized. 3. Encephalopathy, status post traumatic brain injury with craniotomy. 4. Dysphagia, status post percutaneous endoscopic gastrostomy. 5. Anemia. PLAN: The patient remains stable. Continue present care. Observe off antibiotics. Dictated By: MIRIAN HILL LABOR RELATIONS ANALYST for ANAHI SWANSON/MARLON Conf#: [id number] DID#: [id number]
--- NOTE | 2016-06-20 16:35 | PN ---
Date/Time of Note Date/Time of Note DATE: 06/20/16 TIME: 16:30 Assessment/Plan VTE Prophylaxis VTE Prophylaxis Intervention: SCD's Lines/Catheters IV Catheter Type (from Nrs): Peripheral IV Urinary Cath still in place: Yes Reason Cath still needed: urinary retention Assessment/Plan Chief Complaint/Hosp Course Assessment/Plan 1. Anemia of chronic disease. Status post blood transfusion. Dr. Marshall is following patient in gastroenterology consultation, status post EGD and colonoscopy. 2. MRD Pseudomonas urinary tract infection. Dr Pawel garland pt in ID consult. 3. 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 No acute issue. 4. Diabetes. Continue Levemir and sliding scale insulin. 5. Multiple decubiti. Continue wound care according to wound care recommendation. 6. Hypertension. Continue Cozaar. 7. Esophagitis and gastritis per EGD on 06/16. 8. Constipation, start patient on bowel regimen. Further recommendations will depend on patient's hospital course. Plan of care discussed with Dr. Bangura Problems: Subjective 24 Hr Interval Summary Free Text/Dictation Patient has low-grade fever, tolerates G-tube feeding well, no nausea vomiting per RN, constipated. Exam/Review of Systems Vital Signs Vitals Vital Signs Date Time Temp Pulse Resp B/P Pulse Ox O2 Delivery O2 Flow Rate FiO2 06/20/16 14:42 108 20 100 Aerosol 5.0 28 06/20/16 07:51 99.0 135/77 Intake and Output 06/19/16 06/19/16 06/20/16 15:00 23:00 07:00 Intake Total 600 ml 1000 ml 2200 ml Output Total 1000 ml 1200 ml Balance 600 ml 0 ml 1000 ml Exam GENERAL: The patient is lethargic, but arousable, however, nonverbal at baseline. HEENT: Atraumatic normocephalic, PERRLA NECK: Tracheostomy in place, mild secretions. No mass. CHEST: Diminished air entry at bases. No use of accessory muscles. CARDIOVASCULAR: Regular rate and rhythm. S1, S2 normal. No murmur, gallop, or rub. ABDOMEN: Soft, nondistended, nontender. G-tube was intact stoma EXTREMITIES: Contracted with no leg edema. SKIN: Without acute rash. Multiple decubitus. NEURO : lethargic , nonverbal & contracted Results Result Diagram: 06/20/16 0450 06/20/16 0450 Results 24 hrs Laboratory Tests Test 06/19/16 17:46 06/19/16 20:42 06/20/16 00:33 06/20/16 04:50 Bedside Glucose 120 140 108 Anion Gap 13 Basophils # 0.0 Basophils % 0.4 Blood Morphology Comment Blood Urea Nitrogen 13 Calcium Level 8.4 Carbon Dioxide Level 24 Chloride Level 105 Creatinine 0.37 L Eosinophils # 0.6 H Eosinophils % 6.4 Glucose Level 91 Hematocrit 31.3 L Hemoglobin 11.0 L Lymphocytes # 2.3 Lymphocytes % 25.1 Mean Corpuscular Hemoglobin 32.3 Mean Corpuscular Hemoglobin Concent 35.0 Mean Corpuscular Volume 92.1 Mean Platelet Volume 7.8 Monocytes # 0.5 Monocytes % 5.9 Neutrophils # 5.7 Neutrophils % 62.2 Nucleated Red Blood Cells # 0.0 Nucleated Red Blood Cells % 0.0 Platelet Count 322 Potassium Level 3.7 Red Blood Count 3.40 L Red Cell Distribution Width 18.0 H Sodium Level 138 White Blood Count 9.2 Test 06/20/16 05:50 06/20/16 11:59 Bedside Glucose 94 108 Medications Medications Current Medications Acetaminophen (Tylenol Liquid) 650 mg Q4H PRN GTB MILD PAIN LEVEL 1-3; Start at 22:30 Acetaminophen (Tylenol Liquid) 1,000 mg Q4H PRN GTB MODERATE PAIN LEVEL 4-6; Start 06/14/16 at 22:00 Ascorbic Acid (Vitamin C) 500 mg DAILY GTB Last administered on 06/20/16 08:41 ; Admin Dose 500 MG; Start 06/15/16 at 09:00 Insulin Detemir (Levemir) 20 unit QHS SC Last administered on 06/19/16 20:45; Admin Dose 20 UNIT; Start 06/14/16 at 23:00 Losartan Potassium (Cozaar) 50 mg DAILY GTB Last administered on 06/20/16 08: 42; Admin Dose 50 MG; Start 06/15/16 at 09:00 Meloxicam (Mobic) 15 mg DAILY GTB Last administered on 06/20/16 08:42; Admin Dose 15 MG; Start 06/15/16 at 09:00 Zinc Sulfate (Zinc Sulfate) 220 mg DAILY GTB Last administered on 06/20/16 08: 41; Admin Dose 220 MG; Start 06/15/16 at 09:00 Ferrous Sulfate (Feosol Liquid Cup) 330 mg DAILY GTB Last administered on 08:41; Admin Dose 330 MG; Start 06/15/16 at 09:00 Multivitamins (Thera-Plus) 5 ml DAILY GTB Last administered on 06/20/16 08:41 ; Admin Dose 5 ML; Start 06/15/16 at 09:00 Acetaminophen/ Hydrocodone Bitart ([place] (5/325)) 1 tab Q4H PRN GTB pain; Start 06/15/16 at 02:00 Insulin Aspart (Novolog Insulin Pen) NOVOLOG *MILD* ALGORI... Q6 SC Last administered on 06/19/16 12:27; Admin Dose 1 UNIT; Start 06/15/16 at 00:00 Miscellaneous Information 1 ea NOTE XX ; Start 06/14/16 at 23:30 Glucose (Glutose) 15 gm Q15M PRN PO DECREASED GLUCOSE; Start 06/14/16 at 23:30 Glucose (Glutose) 22.5 gm Q15M PRN PO DECREASED GLUCOSE; Start 06/14/16 at 23: 30 Dextrose (D50w Syringe) 25 ml Q15M PRN IV DECREASED GLUCOSE; Start 06/14/16 at 23:30 Dextrose (D50w Syringe) 50 ml Q15M PRN IV DECREASED GLUCOSE; Start 06/14/16 at 23:30 Glucagon (Glucagen) 1 mg Q15M PRN IM DECREASED GLUCOSE; Start 06/14/16 at 23:30 Glucose (Glutose) 15 gm Q15M PRN BUCCAL DECREASED GLUCOSE; Start 06/14/16 at 23 :30 Bisacodyl (Dulcolax Supp) 10 mg DAILY PRN [place] CONSTIPATION; Start 06/14/16 at 23 :30 Magnesium Hydroxide (Milk Of Mag) 30 ml DAILY PRN GTB CONSTIPATION; Start 06/14 at 23:30 Miscellaneous Information FLU VACCINE PREVIOU... NOTE PRN XX NOTE; Start at 03:30 Sodium Chloride (NS) 1,000 ml @ 100 mls/hr Q10H IV Last administered on 05:57; Admin Dose 100 MLS/HR; Start 06/16/16 at 06:30 Fluconazole (Diflucan) 100 mg DAILY PO Last administered on 06/20/16 08:42; Admin Dose 100 MG; Start 06/16/16 at 17:00 Pantoprazole (Protonix Iv) 40 mg DAILY@06 IV Last administered on 06/20/16 05: 49; Admin Dose 40 MG; Start 06/19/16 at 06:00 JASON GRIJALVA Jun 20, 2016 16:35
[2016-06-20] MEDS ORDERED: MAGNESIUM HYDROXIDE 30ML CUP PO PRN (17:00)
[2016-06-20 19:47] VITALS: BP 143/82; RESP 22
[2016-06-20] MEDS: DOCUSATE SODIUM 10 MG/ML (10ML CUP) GTB SCH (22:12)
[2016-06-20] MEDS: INSULIN DETEMIR [LEVEMIR] 3ML CART SC SCH (22:15)
[2016-06-21] MEDS: ALBUTEROL 0.5% (NEB) 2.5 MG/0.5 ML AMP HHN SCH ×4 (00:55→19:45)
[2016-06-21] MEDS: SOD CHLORIDE 0.9% 1,000 ML IV SCH ×2 (03:32→05:58)
[2016-06-21 05:38] LABS: BASOPHILS % 0.3 % (0.0-2.0); EOSINOPHILS # 0.5 10^3/ul (0.0-0.5); EOSINOPHILS % 4.5 % (0.0-7.0); HEMATOCRIT 34.7 % (42.0-52.0); HEMOGLOBIN 11.5 g/dl (14.0-18.0); LYMPHOCYTES # 2.8 10^3/ul (0.8-2.9); LYMPHOCYTES % 22.9 % (15.0-51.0); MEAN CORPUSCULAR HEMOGLOBIN 31.6 pg (29.0-33.0); MEAN CORPUSCULAR HGB CONC 33.3 g/dl (32.0-37.0); MEAN CORPUSCULAR VOLUME 94.9 fl (82.0-101.0); MEAN PLATELET VOLUME 7.4 fl (7.4-10.4); MONOCYTE # 0.5 10^3/ul (0.3-0.9); MONOCYTES % 4.4 % (0.0-11.0); NEUTROPHIL # 8.2 10^3/ul (1.6-7.5); NEUTROPHILS % 67.9 % (39.0-77.0); PLATELET COUNT 343 10^3/UL (140-440); RED BLOOD COUNT 3.65 10^6/ul (4.70-6.10); RED CELL DISTRIBUTION WIDTH 18.2 % (11.5-14.5); UNCORRECTED WBC 12.1 10^3/ul (4.8-10.8); WHITE BLOOD COUNT 12.1 10^3/ul (4.8-10.8)
[2016-06-21 05:59] LABS: CONDITION 1; LH ANALYZER COMMENTS 1
[2016-06-21] MEDS: INSULIN ASPART [NOVOLOG] 3 ML PEN SC SCH ×4 (06:00→17:52)
[2016-06-21 06:02] LABS: POTASSIUM 3.8 mmol/L (3.5-5.1)
[2016-06-21 06:05] LABS: CREATININE 0.35 mg/dl (0.61-1.24)
[2016-06-21 06:06] LABS: CALCIUM 8.7 mg/dl (8.4-10.2)
[2016-06-21] MEDS: PANTOPRAZOLE 40 MG INJ IV SCH (06:06)
[2016-06-21 07:34] VITALS: BP 133/65; RESP 20
[2016-06-21 08:00] VITALS: RESP 22
[2016-06-21] MEDS: LOSARTAN 50 MG TAB GTB SCH (09:00)
[2016-06-21] MEDS: ZINC SULFATE 220 MG CAP GTB SCH (09:00)
[2016-06-21] MEDS: MULTIVITAMINS 5 ML CUP GTB SCH (09:00)
[2016-06-21] MEDS: MELOXICAM 15 MG TAB GTB SCH (09:00)
[2016-06-21] MEDS: DOCUSATE SODIUM 10 MG/ML (10ML CUP) GTB SCH ×2 (09:00→20:24)
[2016-06-21] MEDS: ASCORBIC ACID 500 MG TAB GTB SCH (09:00)
[2016-06-21] MEDS: FLUCONAZOLE 100 MG TAB PO SCH (09:00)
[2016-06-21] MEDS: FERROUS SULFATE 60 MG/ML 5ML CUP GTB SCH (09:00)
[2016-06-21] MEDS: DEXTROSE 5%-0.9% NACL 1,000 ML IV SCH (10:44)
--- NOTE | 2016-06-21 14:11 | CONS ---
Date/Time of Note Date/Time of Note DATE: 06/21/16 TIME: 14:09 Assessment/Plan Assessment/Plan Chief Complaint/Hosp Course SUBJECTIVE: No acute changes. The patient is lying comfortably in bed. No fevers overnight. ANTIMICROBIALS: Fluconazole. PHYSICAL EXAMINATION: GENERAL: This is a fragile, elderly man who is lying comfortably in bed. HEENT: Head atraumatic, normocephalic. Sclerae anicteric. Buccal mucosa dry. NECK: Supple, trachea midline. CHEST: Rise symmetrical. Breath sounds diminished. HEART: S1, S2. ABDOMEN: Soft, bowel tones present. EXTREMITIES: Without cyanosis. ASSESSMENT: 1. Bacteriuria without evidence of sepsis. 2. Chronic respiratory failure with sputum culture, grew multiple Corynebacterium likely colonized. 3. Encephalopathy, status post traumatic brain injury with craniotomy. 4. Dysphagia, status post percutaneous endoscopic gastrostomy. 5. Anemia. PLAN: The patient remains stable, no fevers, will repeat cxr, continue observing off antibiotics. dw staff Problems: Consultation Date/Type/Reason Admit Date/Time Jun 16, 2016 at 12:01 Initial Consult Date Type of Consultation: id Exam/Review of Systems Vital Signs Vitals Vital Signs Date Time Temp Pulse Resp B/P Pulse Ox O2 Delivery O2 Flow Rate FiO2 06/21/16 13:59 112 20 97 Aerosol 5.0 28 06/21/16 07:34 98.1 133/65 Intake and Output 06/20/16 06/20/16 06/21/16 15:00 23:00 07:00 Intake Total 1850 ml 1000 ml Output Total 2700 ml 1800 ml Balance -850 ml -800 ml Results Result Diagram: 06/21/16 0510 06/21/16 0510 Results 24 hrs Laboratory Tests Test 06/20/16 17:43 06/20/16 22:11 06/21/16 00:03 06/21/16 05:10 Bedside Glucose 135 146 136 Anion Gap 18 H Basophils # 0.0 Basophils % 0.3 Blood Morphology Comment Blood Urea Nitrogen 13 Calcium Level 8.7 Carbon Dioxide Level 23 Chloride Level 101 Creatinine 0.35 L Eosinophils # 0.5 Eosinophils % 4.5 Glucose Level 104 Hematocrit 34.7 L Hemoglobin 11.5 L Lymphocytes # 2.8 Lymphocytes % 22.9 Mean Corpuscular Hemoglobin 31.6 Mean Corpuscular Hemoglobin Concent 33.3 Mean Corpuscular Volume 94.9 Mean Platelet Volume 7.4 Monocytes # 0.5 Monocytes % 4.4 Neutrophils # 8.2 H Neutrophils % 67.9 Nucleated Red Blood Cells # 0.0 Nucleated Red Blood Cells % 0.0 Platelet Count 343 Potassium Level 3.8 Red Blood Count 3.65 L Red Cell Distribution Width 18.2 H Sodium Level 138 White Blood Count 12.1 #H Test 06/21/16 06:06 06/21/16 12:05 Bedside Glucose 89 87 Medications Medications Current Medications Acetaminophen (Tylenol Liquid) 650 mg Q4H PRN GTB MILD PAIN LEVEL 1-3; Start at 22:30 Acetaminophen (Tylenol Liquid) 1,000 mg Q4H PRN GTB MODERATE PAIN LEVEL 4-6; Start 06/14/16 at 22:00 Ascorbic Acid (Vitamin C) 500 mg DAILY GTB Last administered on 06/20/16 08:41 ; Admin Dose 500 MG; Start 06/15/16 at 09:00 Insulin Detemir (Levemir) 20 unit QHS SC Last administered on 06/20/16 22:15; Admin Dose 20 UNIT; Start 06/14/16 at 23:00 Losartan Potassium (Cozaar) 50 mg DAILY GTB Last administered on 06/20/16 08: 42; Admin Dose 50 MG; Start 06/15/16 at 09:00 Meloxicam (Mobic) 15 mg DAILY GTB Last administered on 06/20/16 08:42; Admin Dose 15 MG; Start 06/15/16 at 09:00 Zinc Sulfate (Zinc Sulfate) 220 mg DAILY GTB Last administered on 06/20/16 08: 41; Admin Dose 220 MG; Start 06/15/16 at 09:00 Ferrous Sulfate (Feosol Liquid Cup) 330 mg DAILY GTB Last administered on 08:41; Admin Dose 330 MG; Start 06/15/16 at 09:00 Multivitamins (Thera-Plus) 5 ml DAILY GTB Last administered on 06/20/16 08:41 ; Admin Dose 5 ML; Start 06/15/16 at 09:00 Acetaminophen/ Hydrocodone Bitart ([place] (5/325)) 1 tab Q4H PRN GTB pain; Start 06/15/16 at 02:00 Insulin Aspart (Novolog Insulin Pen) NOVOLOG *MILD* ALGORI... Q6 SC Last administered on 06/19/16 12:27; Admin Dose 1 UNIT; Start 06/15/16 at 00:00 Miscellaneous Information 1 ea NOTE XX ; Start 06/14/16 at 23:30 Glucose (Glutose) 15 gm Q15M PRN PO DECREASED GLUCOSE; Start 06/14/16 at 23:30 Glucose (Glutose) 22.5 gm Q15M PRN PO DECREASED GLUCOSE; Start 06/14/16 at 23: 30 Dextrose (D50w Syringe) 25 ml Q15M PRN IV DECREASED GLUCOSE; Start 06/14/16 at 23:30 Dextrose (D50w Syringe) 50 ml Q15M PRN IV DECREASED GLUCOSE; Start 06/14/16 at 23:30 Glucagon (Glucagen) 1 mg Q15M PRN IM DECREASED GLUCOSE; Start 06/14/16 at 23:30 Glucose (Glutose) 15 gm Q15M PRN BUCCAL DECREASED GLUCOSE; Start 06/14/16 at 23 :30 Bisacodyl (Dulcolax Supp) 10 mg DAILY PRN [place] CONSTIPATION; Start 06/14/16 at 23 :30 Magnesium Hydroxide (Milk Of Mag) 30 ml DAILY PRN GTB CONSTIPATION; Start 06/14 at 23:30 Miscellaneous Information (Flu Vaccine Previously Dispensed) FLU VACCINE PREVIOU... NOTE PRN XX NOTE; Start 06/15/16 at 03:30 Fluconazole (Diflucan) 100 mg DAILY PO Last administered on 06/20/16 08:42; Admin Dose 100 MG; Start 06/16/16 at 17:00 Pantoprazole (Protonix Iv) 40 mg DAILY@06 IV Last administered on 06/21/16 06: 06; Admin Dose 40 MG; Start 06/19/16 at 06:00 Docusate Sodium (Colace Liquid Cup) 100 mg BID GTB Last administered on 22:12; Admin Dose 100 MG; Start 06/20/16 at 21:00 Magnesium Hydroxide 30 ml 30 ml DAILY PRN PO CONSTIPATION; Start 06/20/16 at 17 :00 Dextrose/Sodium Chloride (D5-NS) 1,000 ml @ 70 mls/hr [id number] IV Last administered on 1/31/17at 10:44; Admin Dose 70 MLS/HR; Start 06/21/16 at 10:30 MIRIAN HILL NP Jun 21, 2016 14:11
--- NOTE | 2016-06-21 17:35 | PN ---
Date/Time of Note Date/Time of Note DATE: 06/21/16 TIME: 17:32 Assessment/Plan VTE Prophylaxis VTE Prophylaxis Intervention: SCD's Lines/Catheters IV Catheter Type (from [facility]): Peripheral IV Central line still needed: Yes Urinary Cath still in place: Yes Reason Cath still needed: urinary retention Assessment/Plan Chief Complaint/Hosp Course Assessment/Plan 1. Anemia of chronic disease. Status post blood transfusion. Dr. Villa is following patient in gastroenterology consultation, status post EGD and colonoscopy. 2. MRD Pseudomonas urinary tract infection. Dr Armas is following in ID consult. 3. 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 No acute issue. 4. Diabetes. Continue Levemir and sliding scale insulin. 5. Multiple decubiti. Continue wound care according to wound care recommendation. 6. Hypertension. Continue Cozaar. 7. Esophagitis and gastritis per EGD on 06/16. 8. G-tube dislodgment, Dr. Villa is following in gastroenterology consultation. Further recommendations will depend on patient's hospital course. Plan of care discussed with Dr. Bangura Problems: Subjective 24 Hr Interval Summary Free Text/Dictation Patient status post G-tube dislodgment, pending G-tube placement by gastroenterology, start patients on IV fluids while no G-tube feeding. Exam/Review of Systems Vital Signs Vitals Vital Signs Date Time Temp Pulse Resp B/P Pulse Ox O2 Delivery O2 Flow Rate FiO2 06/21/16 13:59 112 20 97 Aerosol 5.0 28 06/21/16 07:34 98.1 133/65 Intake and Output 06/20/16 06/20/16 06/21/16 15:00 23:00 07:00 Intake Total 1850 ml 1000 ml Output Total 2700 ml 1800 ml Balance -850 ml -800 ml Exam GENERAL: The patient is lethargic, but arousable, however, nonverbal at baseline. HEENT: Atraumatic normocephalic, PERRLA NECK: Tracheostomy in place, mild secretions. No mass. CHEST: Diminished air entry at bases. No use of accessory muscles. CARDIOVASCULAR: Regular rate and rhythm. S1, S2 normal. No murmur, gallop, or rub. ABDOMEN: Soft, nondistended, nontender. EXTREMITIES: Contracted with no leg edema. SKIN: Without acute rash. Multiple decubitus. NEURO : lethargic , nonverbal & contracted Results Result Diagram: 06/21/16 0510 06/21/16 0510 Results 24 hrs Laboratory Tests Test 06/20/16 17:43 06/20/16 22:11 06/21/16 00:03 06/21/16 05:10 Bedside Glucose 135 146 136 Anion Gap 18 H Basophils # 0.0 Basophils % 0.3 Blood Morphology Comment Blood Urea Nitrogen 13 Calcium Level 8.7 Carbon Dioxide Level 23 Chloride Level 101 Creatinine 0.35 L Eosinophils # 0.5 Eosinophils % 4.5 Glucose Level 104 Hematocrit 34.7 L Hemoglobin 11.5 L Lymphocytes # 2.8 Lymphocytes % 22.9 Mean Corpuscular Hemoglobin 31.6 Mean Corpuscular Hemoglobin Concent 33.3 Mean Corpuscular Volume 94.9 Mean Platelet Volume 7.4 Monocytes # 0.5 Monocytes % 4.4 Neutrophils # 8.2 H Neutrophils % 67.9 Nucleated Red Blood Cells # 0.0 Nucleated Red Blood Cells % 0.0 Platelet Count 343 Potassium Level 3.8 Red Blood Count 3.65 L Red Cell Distribution Width 18.2 H Sodium Level 138 White Blood Count 12.1 #H Test 06/21/16 06:06 06/21/16 12:05 Bedside Glucose 89 87 Medications Medications Current Medications Acetaminophen (Tylenol Liquid) 650 mg Q4H PRN GTB MILD PAIN LEVEL 1-3; Start at 22:30 Acetaminophen (Tylenol Liquid) 1,000 mg Q4H PRN GTB MODERATE PAIN LEVEL 4-6; Start 06/14/16 at 22:00 Ascorbic Acid (Vitamin C) 500 mg DAILY GTB Last administered on 06/20/16 08:41 ; Admin Dose 500 MG; Start 06/15/16 at 09:00 Insulin Detemir (Levemir) 20 unit QHS SC Last administered on 06/20/16 22:15; Admin Dose 20 UNIT; Start 06/14/16 at 23:00 Losartan Potassium (Cozaar) 50 mg DAILY GTB Last administered on 06/20/16 08: 42; Admin Dose 50 MG; Start 06/15/16 at 09:00 Meloxicam (Mobic) 15 mg DAILY GTB Last administered on 06/20/16 08:42; Admin Dose 15 MG; Start 06/15/16 at 09:00 Zinc Sulfate (Zinc Sulfate) 220 mg DAILY GTB Last administered on 06/20/16 08: 41; Admin Dose 220 MG; Start 06/15/16 at 09:00 Ferrous Sulfate (Feosol Liquid Cup) 330 mg DAILY GTB Last administered on 08:41; Admin Dose 330 MG; Start 06/15/16 at 09:00 Multivitamins (Thera-Plus) 5 ml DAILY GTB Last administered on 06/20/16 08:41 ; Admin Dose 5 ML; Start 06/15/16 at 09:00 Acetaminophen/ Hydrocodone Bitart ([place] (5/325)) 1 tab Q4H PRN GTB pain; Start 06/15/16 at 02:00 Insulin Aspart (Novolog Insulin Pen) NOVOLOG *MILD* ALGORI... Q6 SC Last administered on 06/19/16 12:27; Admin Dose 1 UNIT; Start 06/15/16 at 00:00 Miscellaneous Information 1 ea NOTE XX ; Start 06/14/16 at 23:30 Glucose (Glutose) 15 gm Q15M PRN PO DECREASED GLUCOSE; Start 06/14/16 at 23:30 Glucose (Glutose) 22.5 gm Q15M PRN PO DECREASED GLUCOSE; Start 06/14/16 at 23: 30 Dextrose (D50w Syringe) 25 ml Q15M PRN IV DECREASED GLUCOSE; Start 06/14/16 at 23:30 Dextrose (D50w Syringe) 50 ml Q15M PRN IV DECREASED GLUCOSE; Start 06/14/16 at 23:30 Glucagon (Glucagen) 1 mg Q15M PRN IM DECREASED GLUCOSE; Start 06/14/16 at 23:30 Glucose (Glutose) 15 gm Q15M PRN BUCCAL DECREASED GLUCOSE; Start 06/14/16 at 23 :30 Bisacodyl (Dulcolax Supp) 10 mg DAILY PRN [place] CONSTIPATION; Start 06/14/16 at 23 :30 Magnesium Hydroxide (Milk Of Mag) 30 ml DAILY PRN GTB CONSTIPATION; Start 06/14 at 23:30 Miscellaneous Information (Flu Vaccine Previously Dispensed) FLU VACCINE PREVIOU... NOTE PRN XX NOTE; Start 06/15/16 at 03:30 Fluconazole (Diflucan) 100 mg DAILY PO Last administered on 06/20/16 08:42; Admin Dose 100 MG; Start 06/16/16 at 17:00 Pantoprazole (Protonix Iv) 40 mg DAILY@06 IV Last administered on 06/21/16 06: 06; Admin Dose 40 MG; Start 06/19/16 at 06:00 Docusate Sodium (Colace Liquid Cup) 100 mg BID GTB Last administered on 22:12; Admin Dose 100 MG; Start 06/20/16 at 21:00 Magnesium Hydroxide 30 ml 30 ml DAILY PRN PO CONSTIPATION; Start 06/20/16 at 17 :00 Dextrose/Sodium Chloride (D5-NS) 1,000 ml @ 70 mls/hr [id number] IV Last administered on 06/21/16 10:44; Admin Dose 70 MLS/HR; Start 06/21/16 at 10:30 JASON GRIJALVA Jun 21, 2016 17:35
--- NOTE | 2016-06-21 18:12 | RADRPT ---
PROCEDURE: XR Chest. CLINICAL INDICATION: Shortness of breath. TECHNIQUE: Single frontal view. COMPARISON: 06/14/2016. FINDINGS: The tracheostomy tube is in satisfactory position. There are low lung volumes and mild pulmonary ed cristiane. The lungs are otherwise clear. The heart is enlarged. There is calcification in the aorta consistent with atherosclerosis. There are old healed right rib fractures. There is no pleural effusion. There is no pneumothorax. IMPRESSION: 1. Tracheostomy tube. 2. Low lung volumes. 3. Mild pulmonary edema. 4. Cardiomegaly and atherosclerosis. 5. Old healed right rib fractures. RPTAT: QQ .Red Foote MD, MD Date Time Electronically viewed and signed by .Red Foote MD, on 06/21/2016 18:11 .R/
[2016-06-21] MEDS: INSULIN DETEMIR [LEVEMIR] 3ML CART SC SCH (20:34)
[2016-06-21 20:55] VITALS: BP 131/63; RESP 18
[2016-06-22] MEDS: DEXTROSE 5%-0.9% NACL 1,000 ML IV SCH (00:28)
[2016-06-22] MEDS: ALBUTEROL 0.5% (NEB) 2.5 MG/0.5 ML AMP HHN SCH ×4 (01:51→19:51)
[2016-06-22] MEDS: PANTOPRAZOLE 40 MG INJ IV SCH (05:28)
[2016-06-22] MEDS: INSULIN ASPART [NOVOLOG] 3 ML PEN SC SCH ×5 (05:28→23:58)
[2016-06-22 06:14] LABS: BASOPHILS % 0.4 % (0.0-2.0); EOSINOPHILS # 0.5 10^3/ul (0.0-0.5); EOSINOPHILS % 6.7 % (0.0-7.0); HEMATOCRIT 32.2 % (42.0-52.0); HEMOGLOBIN 10.8 g/dl (14.0-18.0); LYMPHOCYTES # 2.5 10^3/ul (0.8-2.9); LYMPHOCYTES % 29.8 % (15.0-51.0); MEAN CORPUSCULAR HEMOGLOBIN 31.8 pg (29.0-33.0); MEAN CORPUSCULAR HGB CONC 33.6 g/dl (32.0-37.0); MEAN CORPUSCULAR VOLUME 94.9 fl (82.0-101.0); MEAN PLATELET VOLUME 7.6 fl (7.4-10.4); MONOCYTE # 0.6 10^3/ul (0.3-0.9); MONOCYTES % 6.8 % (0.0-11.0); NEUTROPHIL # 4.6 10^3/ul (1.6-7.5); NEUTROPHILS % 56.3 % (39.0-77.0); PLATELET COUNT 347 10^3/UL (140-440); RED BLOOD COUNT 3.39 10^6/ul (4.70-6.10); RED CELL DISTRIBUTION WIDTH 17.8 % (11.5-14.5); UNCORRECTED WBC 8.3 10^3/ul (4.8-10.8); WHITE BLOOD COUNT 8.3 10^3/ul (4.8-10.8)
[2016-06-22 06:36] LABS: CONDITION 1; LH ANALYZER COMMENTS 1
[2016-06-22 06:52] LABS: POTASSIUM 3.4 mmol/L (3.5-5.1)
[2016-06-22 06:55] LABS: CALCIUM 8.6 mg/dl (8.4-10.2); CREATININE 0.37 mg/dl (0.61-1.24)
[2016-06-22 08:12] VITALS: BP 147/74; RESP 22
[2016-06-22] MEDS: ZINC SULFATE 220 MG CAP GTB SCH ×2 (09:00→10:27)
[2016-06-22] MEDS: MELOXICAM 15 MG TAB GTB SCH ×2 (09:00→10:28)
[2016-06-22] MEDS: MULTIVITAMINS 5 ML CUP GTB SCH ×2 (09:00→10:26)
[2016-06-22] MEDS: FLUCONAZOLE 100 MG TAB PO SCH ×2 (09:00→10:28)
[2016-06-22] MEDS: LOSARTAN 50 MG TAB GTB SCH ×2 (09:00→10:29)
[2016-06-22] MEDS: FERROUS SULFATE 60 MG/ML 5ML CUP GTB SCH ×2 (09:00→10:27)
[2016-06-22] MEDS: DOCUSATE SODIUM 10 MG/ML (10ML CUP) GTB SCH ×3 (09:00→21:52)
[2016-06-22] MEDS: ASCORBIC ACID 500 MG TAB GTB SCH ×2 (09:00→10:28)
[2016-06-22] MEDS: SOD CHLORIDE 0.9% 1,000 ML IV SCH ×2 (12:23→21:51)
--- NOTE | 2016-06-22 13:29 | PN ---
Date/Time of Note Date/Time of Note DATE: 06/22/16 TIME: 13:28 Assessment/Plan VTE Prophylaxis VTE Prophylaxis Intervention: SCD's Lines/Catheters IV Catheter Type (from [facility]): Peripheral IV Central line still needed: Yes Urinary Cath still in place: Yes Reason Cath still needed: urinary retention Assessment/Plan Chief Complaint/Hosp Course Assessment/Plan 1. Anemia of chronic disease. Status post blood transfusion. Dr. Villa is following patient in gastroenterology consultation, status post EGD and colonoscopy. 2. MRD Pseudomonas urinary tract infection. Dr Armas is following in ID consult. 3. 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 No acute issue. 4. Diabetes. Continue Levemir and sliding scale insulin. 5. Multiple decubiti. Continue wound care according to wound care recommendation. 6. Hypertension. Continue Cozaar. 7. Esophagitis and gastritis per EGD on 06/16. 8. G-tube dislodgment, Dr. Villa is following in gastroenterology consultation. Further recommendations will depend on patient's hospital course. Plan of care discussed with Dr. Bangura Problems: Subjective 24 Hr Interval Summary Free Text/Dictation Patient is status post G-tube placement today, will restart tube feeding monitor residual. Exam/Review of Systems Vital Signs Vitals Vital Signs Date Time Temp Pulse Resp B/P Pulse Ox O2 Delivery O2 Flow Rate FiO2 06/22/16 08:35 78 20 100 Aerosol 5.0 28 T Tube 06/22/16 08:12 97.4 147/74 Intake and Output 06/21/16 06/21/16 06/22/16 15:00 23:00 07:00 Intake Total 700 ml 490 ml 820 ml Output Total 2000 ml Balance 700 ml -1510 ml 820 ml Exam GENERAL: The patient is lethargic, but arousable, however, nonverbal at baseline. HEENT: Atraumatic normocephalic, PERRLA NECK: Tracheostomy in place, mild secretions. No mass. CHEST: Diminished air entry at bases. No use of accessory muscles. CARDIOVASCULAR: Regular rate and rhythm. S1, S2 normal. No murmur, gallop, or rub. ABDOMEN: Soft, nondistended, nontender. EXTREMITIES: Contracted with no leg edema. SKIN: Without acute rash. Multiple decubitus. NEURO : lethargic , nonverbal & contracted Results Result Diagram: 06/22/16 0515 06/22/16 0515 Results 24 hrs Laboratory Tests Test 06/21/16 17:50 06/21/16 20:23 06/21/16 23:51 06/22/16 05:15 Bedside Glucose 98 109 118 Anion Gap 11 # Basophils # 0.0 Basophils % 0.4 Blood Morphology Comment Blood Urea Nitrogen 7 Calcium Level 8.6 Carbon Dioxide Level 26 Chloride Level 105 Creatinine 0.37 L Eosinophils # 0.5 Eosinophils % 6.7 Glucose Level 117 Hematocrit 32.2 L Hemoglobin 10.8 L Lymphocytes # 2.5 Lymphocytes % 29.8 Mean Corpuscular Hemoglobin 31.8 Mean Corpuscular Hemoglobin Concent 33.6 Mean Corpuscular Volume 94.9 Mean Platelet Volume 7.6 Monocytes # 0.6 Monocytes % 6.8 Neutrophils # 4.6 Neutrophils % 56.3 Nucleated Red Blood Cells # 0.0 Nucleated Red Blood Cells % 0.0 Platelet Count 347 Potassium Level 3.4 L Red Blood Count 3.39 L Red Cell Distribution Width 17.8 H Sodium Level 139 White Blood Count 8.3 # Test 06/22/16 05:27 06/22/16 12:22 Bedside Glucose 114 152 Medications Medications Current Medications Acetaminophen (Tylenol Liquid) 650 mg Q4H PRN GTB MILD PAIN LEVEL 1-3; Start at 22:30 Acetaminophen (Tylenol Liquid) 1,000 mg Q4H PRN GTB MODERATE PAIN LEVEL 4-6; Start 06/14/16 at 22:00 Ascorbic Acid (Vitamin C) 500 mg DAILY GTB Last administered on 06/22/16 10:28 ; Admin Dose 500 MG; Start 06/15/16 at 09:00 Insulin Detemir (Levemir) 20 unit QHS SC Last administered on 06/21/16 20:34; Admin Dose 20 UNIT; Start 06/14/16 at 23:00 Losartan Potassium (Cozaar) 50 mg DAILY GTB Last administered on 06/22/16 10:29 ; Admin Dose 50 MG; Start 06/15/16 at 09:00 Meloxicam (Mobic) 15 mg DAILY GTB Last administered on 06/22/16 10:28; Admin Dose 15 MG; Start 06/15/16 at 09:00 Zinc Sulfate (Zinc Sulfate) 220 mg DAILY GTB Last administered on 06/22/16 10: 27; Admin Dose 220 MG; Start 06/15/16 at 09:00 Ferrous Sulfate (Feosol Liquid Cup) 330 mg DAILY GTB Last administered on 10:27; Admin Dose 330 MG; Start 06/15/16 at 09:00 Multivitamins (Thera-Plus) 5 ml DAILY GTB Last administered on 06/22/16 10:26; Admin Dose 5 ML; Start 06/15/16 at 09:00 Acetaminophen/ Hydrocodone Bitart ([place] (5/325)) 1 tab Q4H PRN GTB pain; Start 06/15/16 at 02:00 Insulin Aspart (Novolog Insulin Pen) NOVOLOG *MILD* ALGORI... Q6 SC Last administered on 06/22/16 12:41; Admin Dose 1 UNIT; Start 06/15/16 at 00:00 Miscellaneous Information 1 ea NOTE XX ; Start 06/14/16 at 23:30 Glucose (Glutose) 15 gm Q15M PRN PO DECREASED GLUCOSE; Start 06/14/16 at 23:30 Glucose (Glutose) 22.5 gm Q15M PRN PO DECREASED GLUCOSE; Start 06/14/16 at 23: 30 Dextrose (D50w Syringe) 25 ml Q15M PRN IV DECREASED GLUCOSE; Start 06/14/16 at 23:30 Dextrose (D50w Syringe) 50 ml Q15M PRN IV DECREASED GLUCOSE; Start 06/14/16 at 23:30 Glucagon (Glucagen) 1 mg Q15M PRN IM DECREASED GLUCOSE; Start 06/14/16 at 23:30 Glucose (Glutose) 15 gm Q15M PRN BUCCAL DECREASED GLUCOSE; Start 06/14/16 at 23 :30 Bisacodyl (Dulcolax Supp) 10 mg DAILY PRN [place] CONSTIPATION; Start 06/14/16 at 23 :30 Magnesium Hydroxide (Milk Of Mag) 30 ml DAILY PRN GTB CONSTIPATION; Start 06/14 at 23:30 Miscellaneous Information (Flu Vaccine Previously Dispensed) FLU VACCINE PREVIOU... NOTE PRN XX NOTE; Start 06/15/16 at 03:30 Fluconazole (Diflucan) 100 mg DAILY PO Last administered on 06/22/16 10:28; Admin Dose 100 MG; Start 06/16/16 at 17:00 Pantoprazole (Protonix Iv) 40 mg DAILY@06 IV Last administered on 06/22/16 05: 28; Admin Dose 40 MG; Start 06/19/16 at 06:00 Docusate Sodium (Colace Liquid Cup) 100 mg BID GTB Last administered on 10:26; Admin Dose 100 MG; Start 06/20/16 at 21:00 Magnesium Hydroxide 30 ml 30 ml DAILY PRN PO CONSTIPATION; Start 06/20/16 at 17 :00 Sodium Chloride (NS) 1,000 ml @ 100 mls/hr Q10H IV Last administered on 12:23; Admin Dose 100 MLS/HR; Start 06/22/16 at 10:30 JASON GRIJALVA Jun 22, 2016 13:29
[2016-06-22] MEDS ORDERED: POTASSIUM CHLORIDE 20 MEQ POWDER FOR ORAL SOLN GTB ONE (13:30)
--- NOTE | 2016-06-22 15:55 | PN ---
DATE: 06/22/2016 SUBJECTIVE: No acute events. The patient is awake, noncommunicative, looks comfortable, afebrile. WBC 8.3, no shift, no bands. BUN 7, creatinine 0.37. DIAGNOSTICS: Chest x-ray from yesterday revealed mild pulmonary edema. ANTIMICROBIALS: Patient is off antibiotics. PHYSICAL EXAMINATION: GENERAL: Fragile, elderly man in no distress. HEENT: Head atraumatic, normocephalic. Sclerae anicteric. Buccal mucosa dry. CHEST: Rise symmetrical. Breath sounds clear, diminished to bases. HEART: S1, S2. ABDOMEN: Soft. Bowel tones present. EXTREMITIES: No cyanosis. ASSESSMENT: 1. Status post systemic inflammatory response syndrome. 2. Bacteriuria. 3. Chronic respiratory failure with colonized sputum. 4. Dementia. 5. Dysphagia, status post percutaneous endoscopic gastrostomy. 6. Anemia. PLAN: The patient remains stable off antibiotics. Continue present care, anti-aspiration measures, and panculture p.r.n. Dictated By: MIRIAN HILL TAILMAN for ANAHI SWANSON/MARLON Conf#: [id number] DID#: [id number]
--- NOTE | 2016-06-22 18:30 | GILP ---
DATE OF PROCEDURE: NAME OF PROCEDURE: Placement of a G-tube percutaneously. PREOPERATIVE DIAGNOSIS: The patient had a dislodged G-tube and hence at this time, a new G-tube nee ds to be placed. POSTOPERATIVE DIAGNOSIS: The patient had a dislodged G-tube and hence at this time, a new G-tube ne eds to be placed. DESCRIPTION OF PROCEDURE: At this time, the anterior abdominal wall was prepared with Betadine and alcohol. The existing gastrostomy opening was noted and through this opening a #20 replacement G-tu be was gently advanced into the stomach and the gastric contents were aspirated through the G-tube a nd it confirms that the G-tube is in the right place. Ten mL of fluid was instilled into the balloo n for retention of the G-tube and the adapter was closed and the procedure was terminated. PLAN: Recommend okay to use the G-tube for feeding. Dictated By: IGGY WALLACE/MARLON Conf#: [id number] DID#: [id number] CC: JAKE FIELDS MD;*EndCC*
[2016-06-22 19:00] VITALS: BP 153/82; RESP 20
[2016-06-22] MEDS: INSULIN DETEMIR [LEVEMIR] 3ML CART SC SCH (21:54)
[2016-06-23] MEDS: ALBUTEROL 0.5% (NEB) 2.5 MG/0.5 ML AMP HHN SCH ×4 (01:45→20:47)
[2016-06-23] MEDS: PANTOPRAZOLE 40 MG INJ IV SCH (05:47)
[2016-06-23] MEDS: INSULIN ASPART [NOVOLOG] 3 ML PEN SC SCH ×3 (05:59→17:40)
[2016-06-23] MEDS: SOD CHLORIDE 0.9% 1,000 ML IV SCH ×2 (06:16→19:20)
[2016-06-23 07:54] VITALS: BP 168/70; RESP 18
--- NOTE | 2016-06-23 09:52 | PN ---
Date/Time of Note Date/Time of Note DATE: 06/23/16 TIME: 09:50 Assessment/Plan VTE Prophylaxis VTE Prophylaxis Intervention: SCD's Lines/Catheters IV Catheter Type (from [facility]): Peripheral IV Urinary Cath still in place: Yes Assessment/Plan Assessment/Plan 1. Anemia of chronic disease. Status post blood transfusion. Dr. Villa is following patient in gastroenterology consultation, status post EGD and colonoscopy. 2. MRD Pseudomonas urinary tract infection. Dr Armas is following in ID consult. 3. 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 No acute issue. 4. Diabetes. Continue Levemir and sliding scale insulin. 5. Multiple decubiti. Continue wound care according to wound care recommendation. 6. Hypertension. Continue Cozaar. 7. Esophagitis and gastritis per EGD on 06/16. 8. G-tube dislodgment, Dr. Villa is following in gastroenterology consultation. 9. Hypokalemia on 06/22/2016- no labs today, fu Further recommendations will depend on patient's hospital course. Plan of care discussed with Dr. Bangura Subjective 24 Hr Interval Summary Free Text/Dictation NAD, resting, afebrile. no GI bleeding reported. dw staff Exam/Review of Systems Vital Signs Vitals Vital Signs Date Time Temp Pulse Resp B/P Pulse Ox O2 Delivery O2 Flow Rate FiO2 06/23/16 08:38 92 20 99 Aerosol 5.0 28 06/23/16 07:54 98.5 168/70 Intake and Output 06/22/16 06/22/16 06/23/16 15:00 23:00 07:00 Intake Total 140 ml 1000 ml 1000 ml Output Total 1200 ml 1200 ml Balance 140 ml -200 ml -200 ml Exam Constitutional: non-verbal Head: atraumatic Eyes: nl sclera ENMT: nl external ears & nose Neck: non-tender Respiratory: diminished breath sounds Cardiovascular: nl pulses Gastrointestinal: non-tender, soft Musculoskeletal: muscle weakness Extremities: normal pulses Neurological: lethargic Results Result Diagram: 06/22/16 0515 06/22/16 0515 Results 24 hrs Laboratory Tests Test 06/22/16 12:22 06/22/16 17:56 06/22/16 21:53 06/22/16 23:56 Bedside Glucose 152 122 140 127 Test 06/23/16 05:59 Bedside Glucose 115 Medications Medications Current Medications Acetaminophen (Tylenol Liquid) 650 mg Q4H PRN GTB MILD PAIN LEVEL 1-3; Start at 22:30 Acetaminophen (Tylenol Liquid) 1,000 mg Q4H PRN GTB MODERATE PAIN LEVEL 4-6; Start 06/14/16 at 22:00 Ascorbic Acid (Vitamin C) 500 mg DAILY GTB Last administered on 06/22/16 10:28 ; Admin Dose 500 MG; Start 06/15/16 at 09:00 Insulin Detemir (Levemir) 20 unit QHS SC Last administered on 06/22/16 21:54; Admin Dose 20 UNIT; Start 06/14/16 at 23:00 Losartan Potassium (Cozaar) 50 mg DAILY GTB Last administered on 06/22/16 10:29 ; Admin Dose 50 MG; Start 06/15/16 at 09:00 Meloxicam (Mobic) 15 mg DAILY GTB Last administered on 06/22/16 10:28; Admin Dose 15 MG; Start 06/15/16 at 09:00 Zinc Sulfate (Zinc Sulfate) 220 mg DAILY GTB Last administered on 06/22/16 10: 27; Admin Dose 220 MG; Start 06/15/16 at 09:00 Ferrous Sulfate (Feosol Liquid Cup) 330 mg DAILY GTB Last administered on 10:27; Admin Dose 330 MG; Start 06/15/16 at 09:00 Multivitamins (Thera-Plus) 5 ml DAILY GTB Last administered on 06/22/16 10:26; Admin Dose 5 ML; Start 06/15/16 at 09:00 Acetaminophen/ Hydrocodone Bitart ([place] (5/325)) 1 tab Q4H PRN GTB pain; Start 06/15/16 at 02:00 Insulin Aspart (Novolog Insulin Pen) NOVOLOG *MILD* ALGORI... Q6 SC Last administered on 06/22/16 12:41; Admin Dose 1 UNIT; Start 06/15/16 at 00:00 Miscellaneous Information 1 ea NOTE XX ; Start 06/14/16 at 23:30 Glucose (Glutose) 15 gm Q15M PRN PO DECREASED GLUCOSE; Start 06/14/16 at 23:30 Glucose (Glutose) 22.5 gm Q15M PRN PO DECREASED GLUCOSE; Start 06/14/16 at 23: 30 Dextrose (D50w Syringe) 25 ml Q15M PRN IV DECREASED GLUCOSE; Start 06/14/16 at 23:30 Dextrose (D50w Syringe) 50 ml Q15M PRN IV DECREASED GLUCOSE; Start 06/14/16 at 23:30 Glucagon (Glucagen) 1 mg Q15M PRN IM DECREASED GLUCOSE; Start 06/14/16 at 23:30 Glucose (Glutose) 15 gm Q15M PRN BUCCAL DECREASED GLUCOSE; Start 06/14/16 at 23 :30 Bisacodyl (Dulcolax Supp) 10 mg DAILY PRN [place] CONSTIPATION; Start 06/14/16 at 23 :30 Magnesium Hydroxide (Milk Of Mag) 30 ml DAILY PRN GTB CONSTIPATION; Start 06/14 at 23:30 Miscellaneous Information (Flu Vaccine Previously Dispensed) FLU VACCINE PREVIOU... NOTE PRN XX NOTE; Start 06/15/16 at 03:30 Fluconazole (Diflucan) 100 mg DAILY PO Last administered on 06/22/16 10:28; Admin Dose 100 MG; Start 06/16/16 at 17:00 Pantoprazole (Protonix Iv) 40 mg DAILY@06 IV Last administered on 06/23/16 05: 47; Admin Dose 40 MG; Start 06/19/16 at 06:00 Docusate Sodium (Colace Liquid Cup) 100 mg BID GTB Last administered on 21:52; Admin Dose 100 MG; Start 06/20/16 at 21:00 Magnesium Hydroxide 30 ml 30 ml DAILY PRN PO CONSTIPATION; Start 06/20/16 at 17 :00 Sodium Chloride (NS) 1,000 ml @ 100 mls/hr Q10H IV Last administered on 06:16; Admin Dose 100 MLS/HR; Start 06/22/16 at 10:30 CHECO AGUILLON Jun 23, 2016 09:52
[2016-06-23] MEDS: MULTIVITAMINS 5 ML CUP GTB SCH (10:21)
[2016-06-23] MEDS: DOCUSATE SODIUM 10 MG/ML (10ML CUP) GTB SCH ×2 (10:21→21:11)
[2016-06-23] MEDS: FERROUS SULFATE 60 MG/ML 5ML CUP GTB SCH (10:21)
[2016-06-23] MEDS: ZINC SULFATE 220 MG CAP GTB SCH (10:22)
[2016-06-23] MEDS: ASCORBIC ACID 500 MG TAB GTB SCH (10:22)
[2016-06-23] MEDS: FLUCONAZOLE 100 MG TAB PO SCH (10:22)
[2016-06-23] MEDS: LOSARTAN 50 MG TAB GTB SCH (10:23)
[2016-06-23] MEDS: MELOXICAM 15 MG TAB GTB SCH (10:23)
[2016-06-23 12:09] LABS: BASOPHILS % 0.3 % (0.0-2.0); EOSINOPHILS # 0.4 10^3/ul (0.0-0.5); EOSINOPHILS % 4.9 % (0.0-7.0); HEMATOCRIT 33.9 % (42.0-52.0); HEMOGLOBIN 11.3 g/dl (14.0-18.0); LYMPHOCYTES # 2.3 10^3/ul (0.8-2.9); LYMPHOCYTES % 25.9 % (15.0-51.0); MEAN CORPUSCULAR HEMOGLOBIN 31.8 pg (29.0-33.0); MEAN CORPUSCULAR HGB CONC 33.3 g/dl (32.0-37.0); MEAN CORPUSCULAR VOLUME 95.5 fl (82.0-101.0); MEAN PLATELET VOLUME 7.4 fl (7.4-10.4); MONOCYTE # 0.7 10^3/ul (0.3-0.9); MONOCYTES % 7.4 % (0.0-11.0); NEUTROPHIL # 5.4 10^3/ul (1.6-7.5); NEUTROPHILS % 61.5 % (39.0-77.0); PLATELET COUNT 389 10^3/UL (140-440); RED BLOOD COUNT 3.55 10^6/ul (4.70-6.10); RED CELL DISTRIBUTION WIDTH 17.3 % (11.5-14.5); UNCORRECTED WBC 8.8 10^3/ul (4.8-10.8); WHITE BLOOD COUNT 8.8 10^3/ul (4.8-10.8)
[2016-06-23 12:15] LABS: CONDITION 1; LH ANALYZER COMMENTS 1
[2016-06-23 12:20] LABS: POTASSIUM 3.4 mmol/L (3.5-5.1)
[2016-06-23 12:22] LABS: CREATININE 0.37 mg/dl (0.61-1.24)
[2016-06-23 12:23] LABS: CALCIUM 8.5 mg/dl (8.4-10.2)
--- NOTE | 2016-06-23 14:39 | CONS ---
Date/Time of Note Date/Time of Note DATE: 06/23/16 TIME: 14:38 Assessment/Plan Assessment/Plan Chief Complaint/Hosp Course SUBJECTIVE: No acute changes. The patient is lying comfortably in bed. No fevers overnight. ANTIMICROBIALS: Fluconazole. PHYSICAL EXAMINATION: GENERAL: This is a fragile, elderly man who is lying comfortably in bed. HEENT: Head atraumatic, normocephalic. Sclerae anicteric. Buccal mucosa dry. NECK: Supple, trachea midline. CHEST: Rise symmetrical. Breath sounds diminished. HEART: S1, S2. ABDOMEN: Soft, bowel tones present. EXTREMITIES: Without cyanosis. ASSESSMENT: 1. Bacteriuria without evidence of sepsis. 2. Chronic respiratory failure with sputum culture, grew multiple Corynebacterium likely colonized. 3. Encephalopathy, status post traumatic brain injury with craniotomy. 4. Dysphagia, status post percutaneous endoscopic gastrostomy. 5. Anemia. PLAN: The patient remains stable, no fevers, continue observing off antibiotics. dw staff Problems: Consultation Date/Type/Reason Admit Date/Time Jun 16, 2016 at 12:01 Type of Consultation: id Exam/Review of Systems Vital Signs Vitals Vital Signs Date Time Temp Pulse Resp B/P Pulse Ox O2 Delivery O2 Flow Rate FiO2 06/23/16 13:26 94 18 98 Aerosol 5.0 28 06/23/16 07:54 98.5 168/70 Intake and Output 06/22/16 06/22/16 06/23/16 15:00 23:00 07:00 Intake Total 140 ml 1000 ml 1000 ml Output Total 1200 ml 1200 ml Balance 140 ml -200 ml -200 ml Results Result Diagram: 06/23/16 1110 06/23/16 1110 Results 24 hrs Laboratory Tests Test 06/22/16 17:56 06/22/16 21:53 06/22/16 23:56 06/23/16 05:59 Bedside Glucose 122 140 127 115 Test 06/23/16 11:10 06/23/16 11:58 Anion Gap 13 Basophils # 0.0 Basophils % 0.3 Blood Morphology Comment Blood Urea Nitrogen 6 L Calcium Level 8.5 Carbon Dioxide Level 24 Chloride Level 106 Creatinine 0.37 L Eosinophils # 0.4 Eosinophils % 4.9 Glucose Level 139 Hematocrit 33.9 L Hemoglobin 11.3 L Lymphocytes # 2.3 Lymphocytes % 25.9 Mean Corpuscular Hemoglobin 31.8 Mean Corpuscular Hemoglobin Concent 33.3 Mean Corpuscular Volume 95.5 Mean Platelet Volume 7.4 Monocytes # 0.7 Monocytes % 7.4 Neutrophils # 5.4 Neutrophils % 61.5 Nucleated Red Blood Cells # 0.0 Nucleated Red Blood Cells % 0.0 Platelet Count 389 Potassium Level 3.4 L Red Blood Count 3.55 L Red Cell Distribution Width 17.3 H Sodium Level 140 White Blood Count 8.8 Bedside Glucose 146 Medications Medications Current Medications Acetaminophen (Tylenol Liquid) 650 mg Q4H PRN GTB MILD PAIN LEVEL 1-3; Start at 22:30 Acetaminophen (Tylenol Liquid) 1,000 mg Q4H PRN GTB MODERATE PAIN LEVEL 4-6; Start 06/14/16 at 22:00 Ascorbic Acid (Vitamin C) 500 mg DAILY GTB Last administered on 06/23/16 10:22 ; Admin Dose 500 MG; Start 06/15/16 at 09:00 Insulin Detemir (Levemir) 20 unit QHS SC Last administered on 06/22/16 21:54; Admin Dose 20 UNIT; Start 06/14/16 at 23:00 Losartan Potassium (Cozaar) 50 mg DAILY GTB Last administered on 06/23/16 10:23 ; Admin Dose 50 MG; Start 06/15/16 at 09:00 Meloxicam (Mobic) 15 mg DAILY GTB Last administered on 06/23/16 10:23; Admin Dose 15 MG; Start 06/15/16 at 09:00 Zinc Sulfate (Zinc Sulfate) 220 mg DAILY GTB Last administered on 06/23/16 10: 22; Admin Dose 220 MG; Start 06/15/16 at 09:00 Ferrous Sulfate (Feosol Liquid Cup) 330 mg DAILY GTB Last administered on 10:21; Admin Dose 330 MG; Start 06/15/16 at 09:00 Multivitamins (Thera-Plus) 5 ml DAILY GTB Last administered on 06/23/16 10:21; Admin Dose 5 ML; Start 06/15/16 at 09:00 Acetaminophen/ Hydrocodone Bitart ([place] (5/325)) 1 tab Q4H PRN GTB pain; Start 06/15/16 at 02:00 Insulin Aspart (Novolog Insulin Pen) NOVOLOG *MILD* ALGORI... Q6 SC Last administered on 06/23/16 12:35; Admin Dose 1 UNIT; Start 06/15/16 at 00:00 Miscellaneous Information 1 ea NOTE XX ; Start 06/14/16 at 23:30 Glucose (Glutose) 15 gm Q15M PRN PO DECREASED GLUCOSE; Start 06/14/16 at 23:30 Glucose (Glutose) 22.5 gm Q15M PRN PO DECREASED GLUCOSE; Start 06/14/16 at 23: 30 Dextrose (D50w Syringe) 25 ml Q15M PRN IV DECREASED GLUCOSE; Start 06/14/16 at 23:30 Dextrose (D50w Syringe) 50 ml Q15M PRN IV DECREASED GLUCOSE; Start 06/14/16 at 23:30 Glucagon (Glucagen) 1 mg Q15M PRN IM DECREASED GLUCOSE; Start 06/14/16 at 23:30 Glucose (Glutose) 15 gm Q15M PRN BUCCAL DECREASED GLUCOSE; Start 06/14/16 at 23 :30 Bisacodyl (Dulcolax Supp) 10 mg DAILY PRN [place] CONSTIPATION; Start 06/14/16 at 23 :30 Magnesium Hydroxide (Milk Of Mag) 30 ml DAILY PRN GTB CONSTIPATION; Start 06/14 at 23:30 Miscellaneous Information (Flu Vaccine Previously Dispensed) FLU VACCINE PREVIOU... NOTE PRN XX NOTE; Start 06/15/16 at 03:30 Fluconazole (Diflucan) 100 mg DAILY PO Last administered on 06/23/16 10:22; Admin Dose 100 MG; Start 06/16/16 at 17:00 Pantoprazole (Protonix Iv) 40 mg DAILY@06 IV Last administered on 06/23/16 05: 47; Admin Dose 40 MG; Start 06/19/16 at 06:00 Docusate Sodium (Colace Liquid Cup) 100 mg BID GTB Last administered on 10:21; Admin Dose 100 MG; Start 06/20/16 at 21:00 Magnesium Hydroxide 30 ml 30 ml DAILY PRN PO CONSTIPATION; Start 06/20/16 at 17 :00 Sodium Chloride (NS) 1,000 ml @ 100 mls/hr Q10H IV Last administered on 06:16; Admin Dose 100 MLS/HR; Start 06/22/16 at 10:30 MIRIAN HILL NP Jun 23, 2016 14:39
[2016-06-23 19:00] VITALS: BP 148/72; RESP 20
[2016-06-23] MEDS: INSULIN DETEMIR [LEVEMIR] 3ML CART SC SCH (21:14)
[2016-06-24] MEDS: ALBUTEROL 0.5% (NEB) 2.5 MG/0.5 ML AMP HHN SCH ×3 (01:07→14:04)
[2016-06-24] MEDS: SOD CHLORIDE 0.9% 1,000 ML IV SCH ×2 (04:22→14:59)
[2016-06-24] MEDS: INSULIN ASPART [NOVOLOG] 3 ML PEN SC SCH ×3 (05:30→12:00)
[2016-06-24] MEDS ORDERED: LANSOPRAZOLE 30 MG CAP GTB SCH (06:00)
[2016-06-24 06:02] LABS: BASOPHILS % 0.3 % (0.0-2.0); EOSINOPHILS # 0.5 10^3/ul (0.0-0.5); EOSINOPHILS % 4.6 % (0.0-7.0); HEMOGLOBIN 11.4 g/dl (14.0-18.0); LYMPHOCYTES # 2.1 10^3/ul (0.8-2.9); LYMPHOCYTES % 20.8 % (15.0-51.0); MEAN CORPUSCULAR HEMOGLOBIN 31.7 pg (29.0-33.0); MEAN CORPUSCULAR HGB CONC 33.4 g/dl (32.0-37.0); MEAN CORPUSCULAR VOLUME 95.1 fl (82.0-101.0); MEAN PLATELET VOLUME 7.4 fl (7.4-10.4); MONOCYTE # 0.6 10^3/ul (0.3-0.9); MONOCYTES % 6.1 % (0.0-11.0); NEUTROPHIL # 6.8 10^3/ul (1.6-7.5); NEUTROPHILS % 68.2 % (39.0-77.0); PLATELET COUNT 450 10^3/UL (140-440); RED BLOOD COUNT 3.58 10^6/ul (4.70-6.10); UNCORRECTED WBC 9.9 10^3/ul (4.8-10.8); WHITE BLOOD COUNT 9.9 10^3/ul (4.8-10.8)
[2016-06-24 06:20] LABS: POTASSIUM 3.4 mmol/L (3.5-5.1)
[2016-06-24 06:22] LABS: CREATININE 0.34 mg/dl (0.61-1.24)
[2016-06-24 06:23] LABS: CALCIUM 8.6 mg/dl (8.4-10.2)
[2016-06-24 06:42] LABS: CONDITION 1; LH ANALYZER COMMENTS 1
[2016-06-24 07:49] VITALS: BP 135/64; RESP 16
[2016-06-24] MEDS: FERROUS SULFATE 60 MG/ML 5ML CUP GTB SCH (10:09)
[2016-06-24] MEDS: ZINC SULFATE 220 MG CAP GTB SCH (10:09)
[2016-06-24] MEDS: MELOXICAM 15 MG TAB GTB SCH (10:09)
[2016-06-24] MEDS: LOSARTAN 50 MG TAB GTB SCH (10:09)
[2016-06-24] MEDS: DOCUSATE SODIUM 10 MG/ML (10ML CUP) GTB SCH (10:09)
[2016-06-24] MEDS: MULTIVITAMINS 5 ML CUP GTB SCH (10:10)
[2016-06-24] MEDS: ASCORBIC ACID 500 MG TAB GTB SCH (10:10)
[2016-06-24] MEDS: FLUCONAZOLE 100 MG TAB PO SCH (10:10)
--- NOTE | 2016-06-24 14:31 | CONS ---
Date/Time of Note Date/Time of Note DATE: 06/24/16 TIME: 14:30 Assessment/Plan Assessment/Plan Chief Complaint/Hosp Course SUBJECTIVE: No acute changes. The patient is lying comfortably in bed. No fevers overnight. PHYSICAL EXAMINATION: GENERAL: This is a fragile, elderly man who is lying comfortably in bed. HEENT: Head atraumatic, normocephalic. Sclerae anicteric. Buccal mucosa dry. NECK: Supple, trachea midline. CHEST: Rise symmetrical. Breath sounds diminished. HEART: S1, S2. ABDOMEN: Soft, bowel tones present. EXTREMITIES: Without cyanosis. ASSESSMENT: 1. Bacteriuria without evidence of sepsis. 2. Chronic respiratory failure with sputum culture, grew multiple Corynebacterium likely colonized. 3. Encephalopathy, status post traumatic brain injury with craniotomy. 4. Dysphagia, status post percutaneous endoscopic gastrostomy. 5. Anemia. PLAN: The patient remains stable, no fevers, continue observing off antibiotics , gonsalez cx prn. dw staff Problems: Consultation Date/Type/Reason Admit Date/Time Jun 16, 2016 at 12:01 Type of Consultation: id 24 HR Interval Summary Subjective hx not possible: pt non-verbal Exam/Review of Systems Vital Signs Vitals Vital Signs Date Time Temp Pulse Resp B/P Pulse Ox O2 Delivery O2 Flow Rate FiO2 06/24/16 07:49 97.7 78 16 135/64 98 06/24/16 07:44 5.0 28 06/24/16 07:44 Aerosol Intake and Output 06/23/16 06/23/16 06/24/16 15:00 23:00 07:00 Intake Total 150 ml 850 ml 1800 ml Output Total 2200 ml 1000 ml Balance 150 ml -1350 ml 800 ml Results Result Diagram: 06/24/16 0520 06/24/16 0520 Results 24 hrs Laboratory Tests Test 06/23/16 17:25 06/23/16 21:12 06/24/16 00:53 06/24/16 05:20 Bedside Glucose 123 132 115 Anion Gap 13 Basophils # 0.0 Basophils % 0.3 Blood Morphology Comment Blood Urea Nitrogen 8 Calcium Level 8.6 Carbon Dioxide Level 25 Chloride Level 106 Creatinine 0.34 L Eosinophils # 0.5 Eosinophils % 4.6 Glucose Level 77 # Hematocrit 34.0 L Hemoglobin 11.4 L Lymphocytes # 2.1 Lymphocytes % 20.8 Mean Corpuscular Hemoglobin 31.7 Mean Corpuscular Hemoglobin Concent 33.4 Mean Corpuscular Volume 95.1 Mean Platelet Volume 7.4 Monocytes # 0.6 Monocytes % 6.1 Neutrophils # 6.8 Neutrophils % 68.2 Nucleated Red Blood Cells # 0.0 Nucleated Red Blood Cells % 0.0 Platelet Count 450 H Potassium Level 3.4 L Red Blood Count 3.58 L Red Cell Distribution Width 17.0 H Sodium Level 141 White Blood Count 9.9 Test 06/24/16 05:30 06/24/16 11:42 Bedside Glucose 82 113 Medications Medications Current Medications Acetaminophen (Tylenol Liquid) 650 mg Q4H PRN GTB MILD PAIN LEVEL 1-3; Start at 22:30 Acetaminophen (Tylenol Liquid) 1,000 mg Q4H PRN GTB MODERATE PAIN LEVEL 4-6; Start 06/14/16 at 22:00 Ascorbic Acid (Vitamin C) 500 mg DAILY GTB Last administered on 06/24/16 10:10 ; Admin Dose 500 MG; Start 06/15/16 at 09:00 Insulin Detemir (Levemir) 20 unit QHS SC Last administered on 06/23/16 21:14; Admin Dose 20 UNIT; Start 06/14/16 at 23:00 Losartan Potassium (Cozaar) 50 mg DAILY GTB Last administered on 06/24/16 10:09 ; Admin Dose 50 MG; Start 06/15/16 at 09:00 Meloxicam (Mobic) 15 mg DAILY GTB Last administered on 06/24/16 10:09; Admin Dose 15 MG; Start 06/15/16 at 09:00 Zinc Sulfate (Zinc Sulfate) 220 mg DAILY GTB Last administered on 06/24/16 10: 09; Admin Dose 220 MG; Start 06/15/16 at 09:00 Ferrous Sulfate (Feosol Liquid Cup) 330 mg DAILY GTB Last administered on 10:09; Admin Dose 330 MG; Start 06/15/16 at 09:00 Multivitamins (Thera-Plus) 5 ml DAILY GTB Last administered on 06/24/16 10:10; Admin Dose 5 ML; Start 06/15/16 at 09:00 Acetaminophen/ Hydrocodone Bitart ([place] (5/325)) 1 tab Q4H PRN GTB pain; Start 06/15/16 at 02:00 Insulin Aspart (Novolog Insulin Pen) NOVOLOG *MILD* ALGORI... Q6 SC Last administered on 06/23/16 12:35; Admin Dose 1 UNIT; Start 06/15/16 at 00:00 Miscellaneous Information 1 ea NOTE XX ; Start 06/14/16 at 23:30 Glucose (Glutose) 15 gm Q15M PRN PO DECREASED GLUCOSE; Start 06/14/16 at 23:30 Glucose (Glutose) 22.5 gm Q15M PRN PO DECREASED GLUCOSE; Start 06/14/16 at 23: 30 Dextrose (D50w Syringe) 25 ml Q15M PRN IV DECREASED GLUCOSE; Start 06/14/16 at 23:30 Dextrose (D50w Syringe) 50 ml Q15M PRN IV DECREASED GLUCOSE; Start 06/14/16 at 23:30 Glucagon (Glucagen) 1 mg Q15M PRN IM DECREASED GLUCOSE; Start 06/14/16 at 23:30 Glucose (Glutose) 15 gm Q15M PRN BUCCAL DECREASED GLUCOSE; Start 06/14/16 at 23 :30 Bisacodyl (Dulcolax Supp) 10 mg DAILY PRN [place] CONSTIPATION; Start 06/14/16 at 23 :30 Magnesium Hydroxide (Milk Of Mag) 30 ml DAILY PRN GTB CONSTIPATION; Start 06/14 at 23:30 Miscellaneous Information (Flu Vaccine Previously Dispensed) FLU VACCINE PREVIOU... NOTE PRN XX NOTE; Start 06/15/16 at 03:30 Fluconazole (Diflucan) 100 mg DAILY PO Last administered on 06/24/16 10:10; Admin Dose 100 MG; Start 06/16/16 at 17:00 Docusate Sodium 100 mg 100 mg BID GTB Last administered on 06/24/16 10:09; Admin Dose 100 MG; Start 06/20/16 at 21:00 Sodium Chloride (NS) 1,000 ml @ 100 mls/hr Q10H IV Last administered on 04:22; Admin Dose 100 MLS/HR; Start 06/22/16 at 10:30 Lansoprazole (Prevacid) 30 mg DAILY@06 GTB Last administered on 06/24/16 05:28 ; Admin Dose 30 MG; Start 06/24/16 at 06:00 MIRIAN HILL NP Jun 24, 2016 14:31
[2016-06-24] MEDS ORDERED: POTASSIUM CHLORIDE 20 MEQ POWDER FOR ORAL SOLN GTB ONE (15:30)
--- NOTE | 2016-06-25 15:38 | DS ---
DATE OF ADMISSION: 06/16/2016 DATE OF DISCHARGE: 06/24/2016 FINAL DIAGNOSES: 1. Anemia of chronic disease requiring blood transfusion. 2. Multidrug-resistant Pseudomonas urinary tract infection 3. 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 4. Diabetes mellitus type 2. 5. Multiple decubitus ulcers. 6. Hypertension. 7. Esophagitis and gastritis per esophagogastroduodenoscopy. 8. G-tube dislodgement, status post G-tube insertion BRIEF HISTORY: The patient is an 80-year-old gentleman with a history of craniotomy for left hemisph kavita subdural hematoma. The patient is with tracheostomy and G-tube. The patient's labs revealed a hemoglobin of 7.0 at the detention facility with routine labs and the patient was admitted for further evaluation and management. In the emergency room, the patient was noted to have urinary tra ct infection per UA. The patient was started on broad-spectrum antibiotics and received a transfusi on of 2 packed red blood cells and was admitted for further evaluation and management. HOSPITAL COURSE: The patient was evaluated by Dr. Villa in gastroenterology consultation. The manny ent underwent colonoscopy with note of moderate degree of hemorrhoids and rest of the colon appeared normal. The patient also underwent upper endoscopy on 06/16, which revealed minimal reflux esophag itis, minimal antral gastritis and the patient was started on Pepcid p.o. b.i.d. The patient was a lso evaluated and followed by Dr. Armas in infectious disease consultation. The patient's urine ca me positive for multidrug-resistant Pseudomonas and Marilu albicans. The patient received treatment with cefepime and Diflucan. The patient was also noted to have dislodgement of G-tube which reinse rted by Dr. Villa. The patient was started on tube feedings and tolerating it well. The patient's condition improved and the patient will be discharged to a detention facility. CONDITION ON DISCHARGE: Hemodynamically stable. ACTIVITIES: As patient tolerates. DIET: G-tube feeding. MEDICATIONS ON DISCHARGE: 1. Tylenol p.r.n. for pain and fever. 2. Proventil q.6 hours routine. 3. Ascorbic acid. 4. Dulcolax p.r.n. for constipation. 5. Colace 100 mg b.i.d. 6. Ferrous sulfate 330 mg G-tube daily. 7. Hypoglycemia protocol. 8. [place] p.r.n. for pain. 9. NovoLog per sliding scale. 10. Levemir 20 units subcutaneous daily at bedtime. 11. Cozaar 50 mg via G-tube daily. 12. Milk of magnesia via G-tube daily p.r.n. for constipation. 13. Multivitamins. 14. Zinc sulfate 220 mg via G-tube daily. 15. Pro-Stat liquid via G-tube daily. Interdisciplinary plan of care was established for this patient. The plan of care was discussed wit h Dr. Fields. Dictated By: JASON GRIJALVA [employer]PER[employer] CONSULTANT for JAKE FIELDS MD SR/NTS Conf#: [id number] DID#: [id number]
== END 2016-06-24 18:45 | DRG 377 ==
LOC: E/R 15:06 → INTOOBSV 17:55 → OBSVTOIN 17:55 → MS2 17:55 → UNDOADMOB 19:57 → MS2 19:57 → OBSVTOIN 06-16 12:01
PROVIDERS: ADMIT Internal Medicine; ATTEND Internal Medicine
PROC: 0DJD8ZZ Inspection of Lower Intestinal Tract, Via Natural or Artificial Opening Endoscopic (ICD-10-PCS; principal; 2016-06-16 13:30)
PROC: 0DJ08ZZ Inspection of Upper Intestinal Tract, Via Natural or Artificial Opening Endoscopic (ICD-10-PCS; 2016-06-16 13:30)
PROC: 30233N1 Transfusion of Nonautologous Red Blood Cells into Peripheral Vein, Percutaneous Approach (ICD-10-PCS; 2016-06-17)
PROC: 0D20XUZ Change Feeding Device in Upper Intestinal Tract, External Approach (ICD-10-PCS; 2016-06-22)
DX: K92.2 Gastrointestinal hemorrhage, unspecified (principal); G93.49 Other encephalopathy; L89.120 Pressure ulcer of left upper back, unstageable; L89.154 Pressure ulcer of sacral region, stage 4; J96.10 Chronic respiratory failure, unspecified whether with hypoxia or hypercapnia; L89.013 Pressure ulcer of right elbow, stage 3; N39.0 Urinary tract infection, site not specified; B37.49 Other urogenital candidiasis; Z43.1 Encounter for attention to gastrostomy; D64.9 Anemia, unspecified; L89.42 Pressure ulcer of contiguous site of back, buttock and hip, stage 2; Z87.820 Personal history of traumatic brain injury; E11.9 Type 2 diabetes mellitus without complications; I10 Essential (primary) hypertension; L89.522 Pressure ulcer of left ankle, stage 2; L89.892 Pressure ulcer of other site, stage 2; G31.84 Mild cognitive impairment of uncertain or unknown etiology; Z93.1 Gastrostomy status; Z93.0 Tracheostomy status; K21.0 Gastro-esophageal reflux disease with esophagitis; B96.5 Pseudomonas (aeruginosa) (mallei) (pseudomallei) as the cause of diseases classified elsewhere; Z16.24 Resistance to multiple antibiotics; K59.00 Constipation, unspecified
CPT/HCPCS: 36415; 36430; 71010; 80048; 80053; 82270; 82607; 82728; 82746; 82962; 83540; 85025; 85610; 85730; 86644; 86850; 86900; 86901; 86920; 87040; 87070; 87075; 87081; 87086; 90686; 93005; 94640; 94664; 96374; 97162; 99217; C9113; G0378; J0692; J1815; J7030; J7040; J7042; J7070; P9016

== ENCOUNTER 2017-09-27 17:37 | Inpatient (IN) | END 2017-11-21 20:08 | disposition EXP | DRG 853 ==